=== PATIENT | female | born 1980 | race African-American/Black ===

== ENCOUNTER 2017-10-31 00:29 | Emergency (ER) | payer OTHER ==
[2017-10-31 01:30] VITALS: TEMP 98.9; BMI 42.5
--- NOTE | 2017-10-31 01:52 | PDOC ---
History of Present Illness - General History Source: Patient Exam Limitations: No Limitations - History of Present Illness Initial Comments: 10/31/17 03:37 The patient is a 37 year old female, with a significant past medical history of Lupus, DM, HTN, fibromyalgia, rheumatoid arthritis, migraines, and seizures, who presents to the emergency department with, 2 weeks of a headache and lightheadedness. As per patient, her headache is described as bandlike with associated lightheadedness. She took Advil, without relief. She claims that her current symptoms are different from her normal migraines. She reports multiple episodes of dizziness like the room is spinning when she gets up too fast over the past week. She reports intermittent chest pain she describes as a dull , constant, 7/10 that radiates to her back with associated palpitations. She reports diffuse body aches worsening in her hands and legs which is chronic in nature. The patient is currently on her menses. She claims to be compliant with all of her medications. She denies recent fevers or chills. She denies recent nausea, vomit, diarrhea or constipation. She denies recent dysuria, frequency, urgency or hematuria. She denies recent shortness of breath. Allergies: Iodinated Contrast- Oral and IV Dye. Social history: Nonsmoker. Denies EtOH use and recreational drug use. Primary Care Physician: Dr. Angela <Dian Murdock - Last Filed: 10/31/17 03:46> <Dee Husain - Last Filed: 10/31/17 03:53> - General Chief Complaint: Lightheaded Stated Complaint: PAIN/LIGHTHEADED Time Seen by Provider: 10/31/17 01:52 Past History <Dian Murdock - Last Filed: 10/31/17 03:46> - Suicide/Smoking/Psychosocial Hx Smoking History: Never smoked Have you smoked in the past 12 months: No Information on smoking cessation initiated: No Hx Alcohol Use: No Drug/Substance Use Hx: No <Dee Husain - Last Filed: 10/31/17 03:53> - Past Medical History Allergies/Adverse Reactions: Allergies Allergy/AdvReac Type Severity Reaction Status Date / Time Iodinated Contrast- Oral and Allergy Verified 10/31/17 01:31 IV Dye Review of Systems - Review of Systems Able to Perform ROS?: Yes Comments:: 10/31/17 03:37 GENERAL/CONSTITUTIONAL: No fever or chills. No weakness. HEAD, EYES, EARS, NOSE AND THROAT: No change in vision. No ear pain or discharge. No sore throat. +CARDIOVASCULAR: Chest pain. No shortness of breath. RESPIRATORY: No cough, wheezing, or hemoptysis. GASTROINTESTINAL: No nausea, vomiting, diarrhea or constipation. GENITOURINARY: No dysuria, frequency, or change in urination. +MUSCULOSKELETAL: Diffuse body aches. No neck or back pain. SKIN: No rash +NEUROLOGIC: Headache. Lightheadedness. No loss of consciousness. ENDOCRINE: No increased thirst. No abnormal weight change. HEMATOLOGIC/LYMPHATIC: No anemia, easy bleeding, or history of blood clots. ALLERGIC/IMMUNOLOGIC: No hives or skin allergy. All Other Systems: Reviewed and Negative <Dian Murdock - Last Filed: 10/31/17 03:46> *Physical Exam - Vital Signs Last Vital Signs Temp Pulse Resp BP Pulse Ox 98.9 F 92 H 16 155/93 98 10/31/17 00:30 10/31/17 00:30 10/31/17 00:30 10/31/17 00:30 10/31/17 00:30 - Physical Exam Comments: 10/31/17 03:46 GENERAL: Awake, alert, and fully oriented, in no acute distress HEAD: No signs of trauma EYES: PERRLA, EOMI, sclera anicteric, conjunctiva clear ENT: Auricles normal inspection, hearing grossly normal, nares patent, oropharynx clear without exudates. Moist mucosa NECK: Normal ROM, supple, no lymphadenopathy, JVD, or masses LUNGS: Breath sounds equal, clear to auscultation bilaterally. No wheezes, and no crackles HEART: Regular rate and rhythm, normal S1 and S2, no murmurs, rubs or gallops ABDOMEN: Soft, nontender, normoactive bowel sounds. No guarding, no rebound. No masses EXTREMITIES: Normal range of motion, no edema. No clubbing or cyanosis. No cords, erythema, or tenderness +NEUROLOGICAL: 4+/5 strength of the upper and lower right extremities. Normal strength of the upper and lower left extremities. Cranial nerves II through XII grossly intact. Normal speech, normal gait SKIN: Warm, Dry, normal turgor, no rashes or lesions noted. <Dian Murdock - Last Filed: 10/31/17 03:46> - Vital Signs Last Vital Signs Temp Pulse Resp BP Pulse Ox 98.9 F 92 H 16 155/93 98 10/31/17 00:30 10/31/17 00:30 10/31/17 00:30 10/31/17 00:30 10/31/17 00:30 <Dee Husain - Last Filed: 10/31/17 03:53> ED Treatment Course - LABORATORY CBC & Chemistry Diagram: 10/31/17 02:58 10/31/17 02:58 - ADDITIONAL ORDERS Additional order review: Laboratory Results 10/31/17 10/31/17 10/31/17 02:58 02:58 02:58 PT with INR INR PTT (Actin FS) Sodium 142 Potassium 3.9 Chloride 111 H Carbon Dioxide 24 Anion Gap 7 L BUN 9 Creatinine 0.6 Creat Clearance w eGFR > 60 Random Glucose 111 H Calcium 8.8 Total Bilirubin 0.1 L AST 20 ALT 32 Alkaline Phosphatase 67 Creatine Kinase 174 Troponin I < 0.02 Total Protein 7.1 Albumin 3.9 Serum , Qual Negative Carbamazepine 2.6 L* 10/31/17 10/31/17 02:58 02:58 PT with INR 11.50 INR 1.02 PTT (Actin FS) 27.0 Sodium Potassium Chloride Carbon Dioxide Anion Gap BUN Creatinine Creat Clearance w eGFR Random Glucose Calcium Total Bilirubin AST ALT Alkaline Phosphatase Creatine Kinase Troponin I Total Protein Albumin Serum , Qual Carbamazepine 10/31/17 02:58 RBC 4.10 MCV 82.3 MCHC 33.6 RDW 16.9 H MPV 8.0 Neutrophils % 44.7 Lymphocytes % 44.3 H Monocytes % 7.6 Eosinophils % 2.8 Basophils % 0.6 - Medications Given in the ED: ED Medications Discontinued Medications Generic Name Dose Route Start Last Admin Trade Name Freq PRN Reason Stop Dose Admin Meclizine HCl 25 mg 10/31/17 02:50 10/31/17 03:10 Antivert - PO 10/31/17 02:51 25 mg ONCE ONE Administration Oxycodone/Acetaminophen 2 combo 10/31/17 02:50 10/31/17 03:10 Percocet 5/325 - PO 10/31/17 02:51 2 combo ONCE ONE Administration <Dian Murdock - Last Filed: 10/31/17 03:46> - LABORATORY CBC & Chemistry Diagram: 10/31/17 02:58 10/31/17 02:58 <Dee Husain - Last Filed: 10/31/17 03:53> Medical Decision Making - Medical Decision Making 10/31/17 03:46 Pt's tegretol level is low. Other labs are normal; trop normal; CPK normal. WBC normal. Chemistries normal. C-reactive protein pending. 10/31/17 03:47 Pt's exam is normal, other than her chronic right sided weakness; pt has slight weakness on her right side copared to her left side. No rashes, or fevers. Chronic joint pains. Pt has no flank or abd pain. <Dee Husain - Last Filed: 10/31/17 03:53> *DC/Admit/Observation/Transfer - Attestations Scribe Attestion: 10/31/17 03:37 Documentation prepared by Dian Murdock, acting as certified medical asst for Dee Husain MD. <Dian Murdock - Last Filed: 10/31/17 03:46> <Dee Husain - Last Filed: 10/31/17 03:53> Diagnosis at time of Disposition: Headache, Uncontrolled hypertension, Seizure secondary to subtherapeutic anticonvulsant medication - Discharge Dispostion Disposition: HOME Condition at time of disposition: Stable - Referrals Referrals: Otilio Angela [Primary Care Provider] - - Patient Instructions Printed Discharge Instructions: Essential Hypertension, Lifestyle Habits May Lower Risk of Hypertension in Women, DI for Headache - Post Discharge Activity
[2017-10-31] MEDS ORDERED: MECLIZINE HCL 25 MG TABLET (FP) PO ONE (02:50)
[2017-10-31 03:05] LABS: BASO % 0.6 % (0-2.0); EOS % 2.8 % (0-4.5); HEMATOCRIT 33.7 % (32.4-45.2); HEMOGLOBIN 11.3 GM/dL (10.7-15.3); LYMPH % 44.3 % (8-40); MCH 27.7 pg (25.7-33.7); MCHC 33.6 g/dl (32.0-36.0); MEAN CELL VOLUME 82.3 fl (80-96); MONO % 7.6 % (3.8-10.2); NEUT % 44.7 % (42.8-82.8); PLATELET COUNT 273 K/MM3 (134-434); RDW 16.9 % (11.6-15.6)
[2017-10-31] MEDS ORDERED: MECLIZINE HCL 25 MG TABLET (FP) ONE (03:16)
[2017-10-31 03:23] LABS: INR 1.02 (0.83-1.09); PROTHROMBIN TIME (PATIENT) 11.5 SEC (9.7-13.0)
[2017-10-31 03:25] LABS: ALBUMIN 3.9 g/dl (3.4-5.0); ANION GAP 7 MMOL/L (8-16); BILIRUBIN,TOTAL 0.1 mg/dL (0.2-1.0); BLOOD UREA NITROGEN 9 mg/dL (7-18); CALCIUM 8.8 mg/dL (8.5-10.1); CHLORIDE 111 mmol/L (98-107); CO2 24 mmol/L (21-32); CREATININE 0.6 mg/dL (0.55-1.02); GLUCOSE,RANDOM 111 mg/dL (74-106); POTASSIUM 3.9 mmol/L (3.5-5.1); SGOT/AST 20 U/L (15-37); SGPT/ALT 32 U/L (12-78); SODIUM 142 mmol/L (136-145); TOT PROT 7.1 g/dl (6.4-8.2)
[2017-10-31 03:27] LABS: ALK PHOS 67 U/L (45-117)
[2017-10-31] MEDS ORDERED: carBAMazepine 200 MG TABLET PO ONE (03:50)
[2017-10-31] MEDS ORDERED: LOSARTAN POTASSIUM 25 MG TABLET PO ONE (03:52)
[2017-10-31] MEDS ORDERED: LOSARTAN POTASSIUM 25 MG TABLET ONE (03:57)
[2017-10-31] MEDS ORDERED: carBAMazepine 200 MG TABLET ONE (03:57)
[2017-10-31 04:09] VITALS: BP 139/97; PULSE 81
--- NOTE | 2017-10-31 18:43 | EKG ---
Test Reason : Blood Pressure : / mmHG Vent. Rate : 092 BPM Atrial Rate : 092 BPM P-R Int : 174 ms QRS Dur : 084 ms QT Int : 394 ms P-R-T Axes : 062 -09 047 degrees QTc Int : 487 ms SINUS RHYTHM WITH PREMATURE ATRIAL COMPLEXES WITH ABERRANT CONDUCTION SEPTAL INFARCT , AGE UNDETERMINED ABNORMAL ECG NO PREVIOUS ECGS AVAILABLE Confirmed by NYA GOYAL MD ([id number]) on 10/31/2017 6:43:05 PM Referred By: Confirmed By:NYA GOYAL MD
== END 2017-10-31 04:14 | disposition home or self-care (01) ==
LOC: JER 00:29
DX: R51 Headache (principal); I10 Essential (primary) hypertension; E11.9 Type 2 diabetes mellitus without complications; M06.80 Other specified rheumatoid arthritis, unspecified site; G43.909 Migraine, unspecified, not intractable, without status migrainosus; Z86.69 Personal history of other diseases of the nervous system and sense organs; Z87.39 Personal history of other diseases of the musculoskeletal system and connective tissue
CPT/HCPCS: 36415; 80053; 80156; 80201; 82550; 82553; 84484; 84703; 85025; 85610; 85730; 86140; 93005; 93010; 99282-25

== ENCOUNTER 2019-12-19 14:53 | Inpatient (IN) | payer OTHER ==
--- NOTE | 2019-12-19 15:05 | PDOC ---
Rapid Medical Evaluation Time Seen by Provider: 12/19/19 15:03 Medical Evaluation: Allergies Allergy/AdvReac Type Severity Reaction Status Date / Time Iodinated Contrast Media Allergy Verified 12/19/19 15:00 sumatriptan [From Imitrex] Allergy Difficulty Verified 12/19/19 15:00 Breathing 12/19/19 15:03 39 year old female hx of lupus and gastric bypass complaining of chest pain and SOB. Better with sitting up Vitals significant for HR 106 O2 100 PE: CTA RRR Plan: Labs EKG Chest XR Pt to precede to ED for further eval
--- NOTE | 2019-12-19 15:31 | PDOC ---
History of Present Illness - General Chief Complaint: Chest Pain Stated Complaint: CHEST PAIN Time Seen by Provider: 12/19/19 15:03 - History of Present Illness Initial Comments: 12/19/19 15:57 HPI: This is a 39 y/o female with a PMH of lupus, HTN, RA, seizures, DVT 10 years ago presenting to the ED because of 4 days of chest pain. The pain started abruptly and she denies any inciting incident. Its constant, sharp, left sided, and occasionally radiates to her back. The pain is worse with deep breaths. She is also having increased SOB, worse with exertion and is also complaining of lightheadedness. She denies any LOC. She has experienced similar pain before, but never this bad. She denies any associated N/V, abdominal pain, headache, blurry vision, or pain in her calfs. Admits to DVT over 10 years ago, and she was anticoagulated with Coumadin. No longer on anticoagulants. Patient reports IV contrast allergy. It makes her SOB. She denies recent travel, sick contacts, hx of malignancy, cough, or hemoptysis. ROS: GENERAL/CONSTITUTIONAL: No fever/chills, diaphoresis, or weakness. HEENT: No change in vision. No ear pain. No sore throat. CARDIOVASCULAR: Admits to sharp left sided chest pain, worse with deep breaths. Denies palpitations or peripheral edema. RESPIRATORY: Admits to shortness of breath, worse with exertion. No cough, wheezing, or hemoptysis. GASTROINTESTINAL: No abdominal pain, nausea, vomiting, diarrhea or constipation. GENITOURINARY: No dysuria, frequency MUSCULOSKELETAL: No joint or muscle swelling or pain. SKIN: No rash or hives NEUROLOGIC: Admits to lightheadedness. Denies vertigo, focal weakness, loss of consciousness, or change in strength/sensation. ENDOCRINE: No increased thirst. No unexplained weight loss. HEMATOLOGIC/LYMPHATIC: History of DVT 10 years ago. Not on anticoagulation. PCP: [facility] PMH: lupus, HTN, RA, seizures, DVT 10 years ago PSx: Bariatric surgery Social Hx: Denied etoh, tobacco, drug use Meds: See nurse note Allergies: IV contrast PE: GENERAL: Awake, alert, and fully oriented, in no acute distress. Patient is non- toxic, laying in bed able to speak full sentences. Shallow breathing. HEENT: Normocephalic, atraumatic. PERRLA, EOMI. No conjunctival pallor. Moist mucous membranes. NECK: Normal ROM and supple. No lymphadenopathy, JVD, or masses. CARDIOVASCULAR: Tachycardic, normal S1 and S2, no murmurs, rubs or gallops PULMONARY: Tachypneic taking shallow breaths. Breath sounds equal, clear to au scultation bilaterally. No wheezes, rales or rhonchi. ABDOMEN: Soft, nontender, normoactive bowel sounds. EXTREMITIES: Normal range of motion, no edema or erythema, no calf tenderness. No clubbing or cyanosis. NEUROLOGICAL: Cranial nerves II through XII grossly intact. Normal speech. SKIN: Warm, Dry, normal turgor, no rashes or lesions noted. Normal capillary refill. MDM: 12/19/19 16:46 This is a 39 y/o female with a PMH of lupus, HTN, RA, seizures, DVT 10 years ago presenting to the ED because of 4 days of chest pain. - Pain is sharp, constant, pleuritic - Hemodynamically stable. Saturating 100% on RA. Taking shallow breaths. - Hx of DVT, lupus. Concern for PE - Afebrile, no cough. Less concerned for pna - Patient reports allergy to contrast and says it makes her short of breath CBC, CMP, Cardiac Panel, Coags CXR, EKG V/Q scan because of contrast allergy EKG: No ST elevations T wave inversion in III not on previous EKG from Oct 2017 Sinus rhythm 88bpm Low voltage QRS Normal intervals - Spoke with Dr. Mark - As long as patient is hemodynamically stable can be admitted for V/Q scan in the morning. DVT study tonight, CXR, and can dose heparin if high suspicion for PE. Wells score of 3, putting her at 16.2% chance of PE in the ED population 12/19/19 16:51 - Pending CXR and coags will admit for V/Q scan tomorrow. - Tylenol for pain, fluids 12/19/19 17:54 - Patient currently getting DVT U/S Labs: CBC WNL CMP WNL Troponin negative UA negative Decision to anticoagulate her due to 16.2% change of PE and hypercoagulable state. No contraindications to anticoagulation. 12/19/19 17:54 - Admitted to [facility] 12/20/19 09:02 12/20/19 09:03 Past History - Medical History Allergies/Adverse Reactions: Allergies Allergy/AdvReac Type Severity Reaction Status Date / Time Iodinated Contrast Media Allergy Verified 12/19/19 15:00 sumatriptan [From Imitrex] Allergy Difficulty Verified 12/19/19 15:00 Breathing Home Medications: Ambulatory Orders Carbamazepine [Tegretol -] 200 mg PO BID 10/31/17 Losartan Potassium [Cozaar] 25 mg PO DAILY 10/31/17 COPD: No Diabetes: Yes HTN: Yes Seizures: Yes Other medical history: Lupus - Surgical History GI Surgery: Yes (bypass) - Reproductive History Is Patient Now?: No - Psycho-Social/Smoking History Smoking History: Never smoked Have you smoked in the past 12 months: No - Substance Abuse Hx (Audit-C & DAST Scrn) How often the patient has a drink containing alcohol: Never Score: In Men: 4 or > Positive; In Women: 3 or > Positive: 0 Screen Result (Pos requires Nsg. Audit-10AR): Negative In the last yr the pt used illegal drug/Rx for NonMed reason: No Score: Yes response is considered Positive: 0 Screen Result (Positive result requires Nsg. DAST-10): Negative *Physical Exam - Vital Signs Last Vital Signs Temp Pulse Resp BP Pulse Ox 98.2 F 106 H 22 H 116/72 100 12/19/19 15:01 12/19/19 15:01 12/19/19 15:01 12/19/19 15:01 12/19/19 15:01 Heart Score/ECG Review - History History: Slightly suspicious - Electrocardiogram EKG: Non specific repolarization disturbance - Age Age: </= 45 - Risk Factors Risk Factors Heart Score: Yes Hx Hypertension, Yes Hx Obesity Based on the list above the patient has:: 1-2 risk factors - Troponin Troponin: </= normal limit - Score Heart Score - Total: 2 ED Treatment Course - LABORATORY CBC & Chemistry Diagram: 12/20/19 06:09 12/20/19 06:09 Discharge - Discharge Information Problems reviewed: Yes Clinical Impression/Diagnosis: Shortness of breath Chest pain Qualifiers: Chest pain type: chest pain on breathing Qualified Code(s): R07.1 - Chest pain on breathing - Admission Yes - Follow up/Referral - Patient Discharge Instructions - Post Discharge Activity
--- OUTSIDE RECORDS SUMMARY | 2019-12-19 15:33 | XMS ---
:1980 Author Organization [facility] Support Name Relationship Address Phone UE Unavailable Unavailable Unavailable RONNY GRIGSBY [address] [place] [address] UNEMPLOYD Unavailable Unavailable Unavailable Re-disclosure Warning The records that you are about to access may contain information from federally- assisted alcohol or drug abuse programs. If such information is present, then the following federally mandated warning applies: This information has been disclosed to you from records protected by federal confidentiality rules (42 CFR part 2). The federal rules prohibit you from making any further disclosure of this information unless further disclosure is expressly permitted by the written consent of the person to whom it pertains or as otherwise permitted by 42 CFR part 2. A general authorization for the release of medical or other information is NOT sufficient for this purpose. The Federal rules restrict any use of the information to criminally investigate or prosecute any alcohol or drug abuse patient.The records that you are about to access may contain highly sensitive health information, the redisclosure of which is protected by Article 27-F of the [facility] Public Health law. If you continue you may haveaccess to information: Regarding HIV / AIDS; Provided by facilities licensed or operated by the [facility] Office of Mental Health; or Provided by the [facility] Office for People With Developmental Disabilities. If such information is present, then the following [facility] mandated warning applies: This information has been disclosed to you from confidential records which are protected by state law. State law prohibits you from making any further disclosure of this information without the specific written consent of the person to whom it pertains, or as otherwise permitted by law. Any unauthorized further disclosure in violation of state law may result in a fine or assisted sentence or both. A general authorization for the release of medical or other information is NOT sufficient authorization for further disclosure. Insurance Providers Payer name Policy type Policy ID Covered Covered democrat's Policy P chelsie / Coverage democrat ID relationship to [place] Inf ormation type everett [facility] [id number] SP [id number] NON CAP AETNA PPO [id number] SP [id number] PROGRESSIVE [id number] PT [id number] INS
[2019-12-19 15:55] LABS: BASO % 0.5 % (0-2.0); EOS % 2.6 % (0-4.5); HEMATOCRIT 38.5 % (32.4-45.2); HEMOGLOBIN 13.4 GM/dL (10.7-15.3); LYMPH % 36.9 % (8-40); MCH 32.2 pg (25.7-33.7); MCHC 34.7 g/dl (32.0-36.0); MEAN CELL VOLUME 92.6 fl (80-96); MONO % 5.9 % (3.8-10.2); NEUT % 54.1 % (42.8-82.8); PLATELET COUNT 284 K/MM3 (134-434); RBC 4.16 M/mm3 (3.60-5.2); RDW 13.3 % (11.6-15.6); WHITE BLOOD COUNT 6.6 K/mm3 (4.0-10.0)
[2019-12-19] MEDS ORDERED: ACETAMINOPHEN 1000 MG/100 ML VIAL (NON FORMULARY) IVPB ONE ×2 (15:56→21:13)
[2019-12-19] MEDS ORDERED: SODIUM CHLORIDE 0.9% 500 ML INFUS.BAG IV ONE (15:56)
[2019-12-19] MEDS ORDERED: ACETAMINOPHEN INJECTION 100 ML IVPB ONE ×2 (16:15→20:57)
[2019-12-19 16:27] LABS: ALBUMIN 4.1 g/dl (3.4-5.0); ALK PHOS 82 U/L (45-117); ANION GAP 4 MMOL/L (8-16); BILIRUBIN,TOTAL 0.2 mg/dL (0.2-1); BLOOD UREA NITROGEN 9.4 mg/dL (7-18); CALCIUM 8.8 mg/dL (8.5-10.1); CHLORIDE 106 mmol/L (98-107); CO2 28 mmol/L (21-32); CREATININE 0.6 mg/dL (0.55-1.3); GLUCOSE,RANDOM 103 mg/dL (74-106); POTASSIUM 3.9 mmol/L (3.5-5.1); SGOT/AST 22 U/L (15-37); SGPT/ALT 50 U/L (13-61); SODIUM 138 mmol/L (136-145); TOT PROT 7.7 g/dl (6.4-8.2)
[2019-12-19 16:39] LABS: HCG,QUALITATIVE URINE Negative
[2019-12-19 16:40] LABS: EPI CELLS 30 /uL (0-25.1); HYALINE CASTS 1 /uL (0-3.1); PH,URINE >= 9.0 (5.0-8.0); URINE APPEARANCE CLEAR; URINE BACTERIA 103 /uL (0-1359); URINE BILIRUBIN NEGATIVE (NEGATIVE); URINE COLOR DK YELLOW; URINE GLUCOSE (UA) NEGATIVE (NEGATIVE); URINE KETONE NEGATIVE (NEGATIVE); URINE LEUK ESTERASE NEGATIVE (NEGATIVE); URINE NITRITE NEGATIVE (NEGATIVE); URINE PROTEIN 1+ (NEGATIVE); URINE RBC 42 /uL (0-23.9); URINE UROBILINOGEN 0.2 mg/dL (0.2-1.0)
--- NOTE | 2019-12-19 17:24 | PDOC ---
Attending Attestation - Resident Resident Name: RodrigoIsis - ED Attending Attestation I have performed the following: I have examined & evaluated the patient, The case was reviewed & discussed with the resident, I agree w/resident's findings & plan, Exceptions are as noted - HPI HPI: 12/19/19 17:15 This 39 yo female with PMH of Lupus,DVT,obesity, has had pleuretic chest pain that increases with deep breaths - Physicial Exam PE: 12/19/19 17:25 obese 39 yo female p/e chest pain head ncat neck supple lungs cta b/l cvs [id number] abdomen no rebound extremities no deformities skin warm and dry neuro axox3,ambulatory psych appropriate - Medical Decision Making 12/19/19 17:27 plan labs/anticoagulation/duplex dopplers LE and admit for VQ. IR was consulted to and is aware of this pt. PT is admitted -complication to obtain cta chest is the patient's allergy to IV constrast 12/19/19 20:08 Discharge - Discharge Information Problems reviewed: Yes Clinical Impression/Diagnosis: Shortness of breath Chest pain Qualifiers: Chest pain type: chest pain on breathing Qualified Code(s): R07.1 - Chest pain on breathing - Follow up/Referral - Patient Discharge Instructions - Post Discharge Activity
[2019-12-19 17:40] LABS: URINE WBC 69.6 /uL (0-25.8)
[2019-12-19] MEDS ORDERED: HEPARIN NA (PORCINE) 5,000 UNITS/ML 1ML VIAL IVPUSH PRN ×2 (18:46)
[2019-12-19 18:47] LABS: INR 1.1 (0.83-1.09); PROTHROMBIN TIME (PATIENT) 12.9 SEC (9.7-13.0)
[2019-12-19] MEDS ORDERED: HEPARIN - 25,000 UNIT in SODIUM CHLORIDE 495 ML IV SCH (19:00)
--- OUTSIDE RECORDS SUMMARY | 2019-12-19 19:11 | XMS ---
:1980 Author Organization [facility] Support Name Relationship Address Phone UE, UNEMPLOYED Unavailable Unavailable Unavailable UE Unavailable Unavailable Unavailable RONNY GRIGSBY MOTHER [address] [place] [address] UNEMPLOYD Unavailable Unavailable Unavailable Re-disclosure Warning The [...] is protected by Article 27-F of the [facility] Public Health law. If you continue you may haveaccess to information: Regarding HIV / AIDS; Provided by facilities licensed or operated by the [facility] Office of Mental Health; or Provided by the [facility] Office for People With Developmental Disabilities. If such information is present, then the following [facility] mandated warning applies: This information has been [...] law may result in a fine or correction sentence or both. A general authorization for the release of medical or other information is NOT sufficient authorization for further disclosure. Insurance Providers Payer name Policy type Policy ID Covered Covered democrat's Policy P chelsie / Coverage democrat ID relationship to [place] Inf ormation type everett [facility] [id number] SP [id number] NON CAP AETNA PPO [id number] SP [id number] 3 [facility] [id number] SP [id number] NON CAP PROGRESSIVE [id number] PT [id number] INS
--- NOTE | 2019-12-19 20:17 | EKG ---
Test Reason : Blood Pressure : / mmHG Vent. Rate : 088 BPM Atrial Rate : 088 BPM P-R Int : 188 ms QRS Dur : 098 ms QT Int : 376 ms P-R-T Axes : 004 069 000 degrees QTc Int : 454 ms NORMAL SINUS RHYTHM LOW VOLTAGE QRS SEPTAL INFARCT (CITED ON OR BEFORE 31-OCT-2017) ABNORMAL ECG WHEN COMPARED WITH ECG OF 31-OCT-2017 03:06, NO SIGNIFICANT CHANGE WAS FOUND Confirmed by JOE VINCENT, ANIKET ([id number]) on 12/19/2019 8:17:04 PM Referred By: Confirmed By:ANIKET DIAZ MD
[2019-12-19] MEDS ORDERED: ENOXAPARIN NA (PORCINE) 100 MG/1 ML DISP.SYRIN SQ SCH (20:32)
--- NOTE | 2019-12-19 20:36 | HP ---
CHIEF COMPLAINT: SOB HISTORY OF PRESENT ILLNESS: 39 F h/o SLE, DVT 10 years ago (was on Coumadin), gastric bypass 2019, seizure disorder, asthma, HTN, obesity, fibromyalgia, presents with sudden onset SOB and L sided CP starting 3-4 days ago. Patient endorses suddenly feeling short of breath 3 days ago, endorses increased WOB and CP when she coughs or takes a deep breath. In ED pt. found to be tachycardic and tachypneic saturating 99% on RA. Patient endorses IV contrast allergy w/ "shortness of breath", V/Q scheduled but not done during the day. Denies fever/chills/LOC/travel/sick contacts. No blood in stool/mucus/urine. ER course was notable for: (1) EKG w/ TWI Lead III and T wave flattening aVL (2) Trops neg. x1 (3) CT chest w/o cont. showing dilated pulm. artery, Therapeutic Lovenox empirically given for PE Recent Travel: Denies PAST MEDICAL HISTORY: as above PAST SURGICAL HISTORY: gastric bypass surgery 2018 Social History: denies x3 Allergies Iodinated Contrast Media Allergy (Verified 12/19/19 15:00) sumatriptan [From Imitrex] Allergy (Verified 12/19/19 15:00) Difficulty Breathing HOME MEDICATIONS: Home Medications Medication Instructions Recorded Carbamazepine [Tegretol -] 200 mg PO BID 10/31/17 Losartan Potassium [Cozaar] 25 mg PO DAILY 10/31/17 PHYSICAL EXAMINATION Vital Signs - 24 hr 12/19/19 12/19/19 12/19/19 15:01 15:34 17:00 Temperature 98.2 F Pulse Rate 106 H 88 Pulse Rate [ 87 Apical] Respiratory 22 H 17 Rate Blood Pressure 116/72 Blood Pressure 107/76 [Right Arm] O2 Sat by Pulse 100 99 100 Oximetry (%) 12/19/19 17:21 Temperature Pulse Rate Pulse Rate [ Apical] Respiratory 17 Rate Blood Pressure Blood Pressure [Right Arm] O2 Sat by Pulse 100 Oximetry (%) GA slightly tachypneic, anxious, answering questions HEENT NC/AT, no JVD, no stridor, wide neck circumference CHest no wheezing or crackles, increased WOB, slightly tachypneic CVS S1, S2+, sinus tachycardia, no m/r/g Abd obese, Soft, NT, BS+ Ext no LE edema, no calf tenderness Laboratory Results - last 24 hr 12/19/19 12/19/19 12/19/19 15:20 15:20 15:20 WBC 6.6 RBC 4.16 Hgb 13.4 Hct 38.5 MCV 92.6 MCH 32.2 D MCHC 34.7 RDW 13.3 D Plt Count 284 MPV 8.0 Absolute Neuts (auto) 3.6 Neutrophils % 54.1 D Lymphocytes % 36.9 Monocytes % 5.9 Eosinophils % 2.6 Basophils % 0.5 Nucleated RBC % 0 PT with INR INR PTT (Actin FS) D-Dimer Sodium 138 Potassium 3.9 Chloride 106 Carbon Dioxide 28 Anion Gap 4 L BUN 9.4 Creatinine 0.6 Est GFR (CKD-EPI)AfAm 134.01 Est GFR (CKD-EPI)NonAf 115.63 Random Glucose 103 Calcium 8.8 Total Bilirubin 0.2 AST 22 ALT 50 Alkaline Phosphatase 82 Creatine Kinase 88 Troponin I < 0.02 Total Protein 7.7 Albumin 4.1 Urine Color Dk yellow Urine Appearance Clear Urine pH >= 9.0 H Ur Specific [place] 1.024 Urine Protein 1+ H Urine Glucose (UA) Negative Urine Ketones Negative Urine Blood Negative Urine Nitrite Negative Urine Bilirubin Negative Urine Urobilinogen 0.2 Ur Leukocyte Esterase Negative Urine WBC (Auto) 69.6 Urine RBC (Auto) 42 Urine Casts (Auto) 1 U Epithel Cells (Auto) 30 Urine Bacteria (Auto) 103 Urine HCG, Qual Negative 12/19/19 12/19/19 12/19/19 18:30 18:30 19:50 WBC RBC Hgb Hct MCV MCH MCHC RDW Plt Count MPV Absolute Neuts (auto) Neutrophils % Lymphocytes % Monocytes % Eosinophils % Basophils % Nucleated RBC % PT with INR 12.90 INR 1.10 H PTT (Actin FS) 30.6 D-Dimer 474 Sodium Potassium Chloride Carbon Dioxide Anion Gap BUN Creatinine Est GFR (CKD-EPI)AfAm Est GFR (CKD-EPI)NonAf Random Glucose Calcium Total Bilirubin AST ALT Alkaline Phosphatase Creatine Kinase Troponin I Total Protein Albumin Urine Color Urine Appearance Urine pH Ur Specific [place] Urine Protein Urine Glucose (UA) Urine Ketones Urine Blood Urine Nitrite Urine Bilirubin Urine Urobilinogen Ur Leukocyte Esterase Urine WBC (Auto) Urine RBC (Auto) Urine Casts (Auto) U Epithel Cells (Auto) Urine Bacteria (Auto) Urine HCG, Qual Home Medications Medication Instructions Recorded Carbamazepine [Tegretol -] 200 mg PO BID 10/31/17 Losartan Potassium [Cozaar] 25 mg PO DAILY 10/31/17 Current Medications Generic Name Dose Route Start Last Admin Trade Name Placidoq PRN Reason Stop Dose Admin Carbamazepine 200 mg 12/19/19 22:00 12/19/19 22:13 Tegretol - PO 200 mg BID NEYDA Administration Enoxaparin Sodium 100 mg 12/19/19 20:45 12/19/19 21:03 Lovenox - SQ 100 mg BID NEYDA Administration ASSESSMENT/PLAN: 39 F Highly suspected PE h/o DVT prev. on Coumadin HTN s/p gastric bypass SLE Seizure disorder Fibromyalgia Depression Plan: CT chest w/o cont. neg. for aortic aneurysm/hematoma, dilated PA (?Pulm HTN, PE) WELLS SCORE 3 which is moderate risk for PE Given h/o DVT in the past, Wells score, and h/o SLE (hypercoaguable state) and no absolute contraindication to AC, will give Therapeutic Lovenox pending V/Q scan. Pulmonary consult Restart seizure meds Echo Utox, Thyroid panel (thyromegaly on CT) Tele monitoring DVT ppx: Lovenox Family Medical History Family History: As Documented Visit type - Emergency Visit Emergency Visit: Yes ED Registration Date: 12/19/19 Care time: The patient presented to the Emergency Department on the above date and was hospitalized for further evaluation of their emergent condition. - New Patient This patient is new to me today: Yes Date on this admission: 12/19/19 - Critical Care Critical Care patient: No
[2019-12-19] MEDS ORDERED: ENOXAPARIN NA (PORCINE) 100 MG/1 ML DISP.SYRIN SQ ONE (20:57)
[2019-12-19] MEDS: ENOXAPARIN NA (PORCINE) 100 MG/1 ML DISP.SYRIN SQ SCH (21:03)
[2019-12-19] MEDS ORDERED: carBAMazepine 200 MG TABLET ONE (22:03)
[2019-12-19] MEDS: carBAMazepine 200 MG TABLET PO SCH (22:13)
[2019-12-19 22:45] LABS: COCAINE, UR NEGATIVE ng/ml (CUTOFF=300); METHADONE, UR NEGATIVE ng/ml (CUTOFF=300); OPIATES, URI NEGATIVE ng/ml (CUTOFF=300); PHENCYCLIDINE,URINE NEGATIVE ng/ml (CUTOFF=25); URINE AMPHETAMINES NEGATIVE ng/ml (CUTOFF=500); URINE BARBITURATES NEGATIVE ng/ml (CUTOFF=200); URINE BENZODIAZEPINES NEGATIVE ng/ml (CUTOFF=200)
[2019-12-20 00:19] VITALS: BMI 39.3
[2019-12-20 07:18] LABS: INR 1.1 (0.83-1.09); PROTHROMBIN TIME (PATIENT) 12.9 SEC (9.7-13.0)
--- NOTE | 2019-12-20 07:18 | PN ---
Progress Note (short form) - Note Progress Note: PULMONARY CONSULTATION DICTATED 12/20/19 IMP CP/DYSPNEA DOUBT PE,?LUPUS PLEURITIS H/O SLE H/O DVT UNPROVOKED NEVER WORKED UP FOR HYPER-COAGULABLE STATE ASTHMA SEIZURE DISORDER HTN H/O GASTRIC BYPASS OBESITY PLAN O2 NEEDED ANALGESICS INHALED BRONCHODILATORS NEEDED ESR,CRP ECHO DUPLEX LOWER EXT V/Q DR ROSE Problem List - Problems (1) HTN (hypertension) Code(s): I10 - ESSENTIAL (PRIMARY) HYPERTENSION (2) Chest pain Code(s): R07.9 - CHEST PAIN, UNSPECIFIED Qualifiers: Chest pain type: chest pain on breathing Qualified Code(s): R07.1 - Chest pain on breathing; R07.81 - Pleurodynia (3) Shortness of breath Code(s): R06.02 - SHORTNESS OF BREATH (4) SLE (systemic lupus erythematosus) Code(s): M32.9 - SYSTEMIC LUPUS ERYTHEMATOSUS, UNSPECIFIED (5) H/O deep venous thrombosis Code(s): Z86.718 - PERSONAL HISTORY OF OTHER VENOUS THROMBOSIS AND EMBOLISM
[2019-12-20 07:20] LABS: ACTIVATED PTT 35.7 SECONDS (25.2-36.5)
[2019-12-20 07:22] LABS: BASO % 0.3 % (0-2.0); EOS % 3.4 % (0-4.5); HEMATOCRIT 33.9 % (32.4-45.2); LYMPH % 46.8 % (8-40); MCH 32.8 pg (25.7-33.7); MCHC 35.4 g/dl (32.0-36.0); MEAN CELL VOLUME 92.7 fl (80-96); MEAN PLT VOLUME 8.2 fl (7.5-11.1); MONO % 6.8 % (3.8-10.2); NEUT % 42.7 % (42.8-82.8); PLATELET COUNT 240 K/MM3 (134-434); RBC 3.66 M/mm3 (3.60-5.2); RDW 13.6 % (11.6-15.6); WHITE BLOOD COUNT 5.5 K/mm3 (4.0-10.0)
[2019-12-20 07:42] LABS: ALBUMIN 3.3 g/dl (3.4-5.0); BILIRUBIN,TOTAL 0.2 mg/dL (0.2-1); BLOOD UREA NITROGEN 8.2 mg/dL (7-18); CALCIUM 8.1 mg/dL (8.5-10.1); CREATININE 0.5 mg/dL (0.55-1.3); POTASSIUM 3.6 mmol/L (3.5-5.1); TOT PROT 6.2 g/dl (6.4-8.2)
--- NOTE | 2019-12-20 08:49 | PN ---
Teaching Attending Note Name of Resident: Joann Stanford ATTENDING PHYSICIAN STATEMENT I saw and evaluated the patient. I reviewed the resident's note and discussed the case with the resident. I agree with the resident's findings and plan as documented. SUBJECTIVE: patient still with shortness of breath Sitting in bed, comfortable OBJECTIVE: Vital Signs Period Temp Pulse Resp BP Sys/Nichols Pulse Ox Last 24 Hr 97.8 F-98.4 F 82-106 17-20 94-119/57-76 93-100 Physical exam as per resident note ASSESSMENT AND PLAN: 39 F h/o SLE, DVT 10 years ago (was on Coumadin), gastric bypass 2018, seizure disorder, asthma, HTN, obesity, fibromyalgia, presents with sudden onset SOB and L sided CP: Shortness of breath O2 support as needed Check 2D Echo V/Q scan pending CT chest with dilated Pulmonary artery Patient started overnight on theraputic Lovenox, Continue for now pending V/Q Scan Troponin Negative Monitor on tele Hyperthyroidism Check T3 and T4 Patient denies any supplements Patient noted to have enlarged thyroid gland on CT scan patient will need Thyroid US as outpatient and possible RAIU scan if able Ppx Lovenox
[2019-12-20] MEDS ORDERED: PT OWN MED DRAWER 7, Y5N ONE ×2 (08:56→20:57)
[2019-12-20] MEDS: carBAMazepine 200 MG TABLET PO SCH ×2 (10:32→21:37)
[2019-12-20] MEDS: ENOXAPARIN NA (PORCINE) 100 MG/1 ML DISP.SYRIN SQ SCH ×2 (10:33→21:37)
--- NOTE | 2019-12-20 12:48 | CONS ---
PULMONARY CONSULTATION DATE OF CONSULTATION: 12/20/2019 REFERRING PHYSICIAN: Isacc Schultz MD Patient is a 39-year-old female with past medical history of SLE, maintained on Plaquenil; history of DVT, unprovoked 10 years ago, was treated with Coumadin as well as Lovenox for approximately 1 year; gastric bypass in 2019; seizure disorder; asthma; hypertension; fibromyalgia; admitted to [facility] on December 18, with complaint of sudden onset of shortness of breath and left-sided pleuritic chest pain which started 3-4 days prior to admission. Patient states she always has left-sided chest discomfort. For the past 3 days, she had acute onset of worsening of chest pain associated with inspiration as well as shortness of breath. Denied any fevers, chills. Denies any cough. No hemoptysis. She presented to the emergency room. In the ER, she was noted to be tachypneic and tachycardic with O2 saturations of 99% on room air. CTA of the chest was not able to be performed secondary to IV CONTRAST allergy. Patient denies any recent travel. There is no history of occupational exposure to chemicals or fumes. She is a nonsmoker. She denies any hemoptysis. Denies any fevers, weight loss, or night sweats. Of note, she underwent a CAT scan of the chest without contrast which showed dilated pulmonary artery. She was started on empiric Lovenox for possible PE. PAST MEDICAL HISTORY: Again includes DVT, unprovoked, never worked up for hypercoagulable state; SLE; gastric bypass; seizures; asthma; hypertension; obesity; fibromyalgia. REVIEW OF SYSTEMS: Positive mild shortness of breath. Positive pleuritic chest pain. No fever. No chills. No hemoptysis. No cough. No abdominal pain. No lower extremity edema. CURRENT MEDICATIONS: Include Tegretol and Lovenox. PHYSICAL EXAMINATION: General: Patient is an obese female, awake, alert, uncomfortable, in no acute distress. Vital Signs: She is afebrile. Blood pressure 105/67. Respiratory rate is 20. O2 saturation is 98% on room air. HEENT: Normocephalic, atraumatic. Neck: Supple. Heart: Regular. S1, S2. Chest: Clear. Abdomen: Soft. Bowel sounds are positive. Extremities: No cyanosis or edema. LABORATORY DATA: WBC is 5.5, hemoglobin 12, hematocrit 33.9 with a platelet count of 240,000. D-dimer is 474. BUN is 8, creatinine 0.5. Chest CT as noted earlier. COVID serology pending. IMPRESSION: 1. Chest pain, dyspnea. Doubt pulmonary embolism with normal D-dimer, although cannot completely exclude. 2. Rule out possible lupus pleuritis. 3. History of systemic lupus erythematosus. 4. History of deep venous thrombosis, unprovoked; never worked up for hypercoagulable state. 5. Asthma, stable. 6. Seizure disorder. 7. Hypertension. 8. History of gastric bypass. 9. Obesity. PLAN: Supplemental O2, analgesics and add bronchodilators as needed. Obtain ESR, CRP, echocardiogram, duplex of lower extremities and V/Q. ISACC ROSE M.D. KATHERIN/[id number]
--- NOTE | 2019-12-20 14:30 | ECHO ---
Version: 1 Name: LINDSEY LUNA Exam: Adult Echocardiogram Study Date: 12/20/2019, 1:32 PM Age: 39 Years MMode/2D Measurements & Calculations IVSd: 1.02 cm LVIDs: 2.07 cm LVIDd: 3.5 cm LVPWd: 1.07 cm LAV (MOD-bp): 28.1 ml LVOT diam: 2.04 cm Ao root diam: 2.6 cm LA dimension: 3.1 cm Doppler Measurements & Calculations MV E max vishal: 90.7 cm/sec Med E/e': 9.3 MV A max vishal: 94.0 cm/sec Med Peak E' Vishal: 9.8 cm/sec MV E/A: 0.96 Lat E/e': 7.4 Lat Peak E' Vishal: 12.3 cm/sec MR max P.2 mmHg Ao max P.3 mmHg Ao V2 max: 160.4 cm/sec TR max vishal: 206.3 cm/sec TR max P.0 mmHg Left Ventricle The left ventricular size, thickness and function are normal. EF 72%. Grade I diastolic dysfunction, (abnormal relaxation pattern). Right Ventricle The right ventricle is normal in size and function. Atria Normal left and right atrial size and function. Mitral Valve The mitral valve is grossly normal. Tricuspid Valve The tricuspid valve is not well visualized, but is grossly normal. Mild TR, PASP 26 mmHg. Aortic Valve The aortic valve is normal in structure and function. Pulmonic Valve The pulmonic valve is normal in structure and function. Great Vessels The aortic root is normal size. Pericardium/Pleura There is no pericardial effusion. Summary Statements The left ventricular size, thickness and function are normal EF 72% Grade I diastolic dysfunction, (abnormal relaxation pattern). The right ventricle is normal in size and function. Normal left and right atrial size and function. The mitral valve is grossly normal. The aortic valve is normal in structure and function. The pulmonic valve is normal in structure and function. MD Sheldon Prado 12/20/2019, 2:30 PM Ordering Physician: Raffaele Uriostegui Performed By: Yamel Montenegro
--- NOTE | 2019-12-20 15:12 | PN ---
Physical Exam: SUBJECTIVE: Patient seen and examined. Complains of difficulty breathing and taking a deep breath, due to chest pain. OBJECTIVE: Vital Signs Period Temp Pulse Resp BP Sys/Nichols Pulse Ox Last 24 Hr 97.8 F-98.4 F 82-106 17-20 94-119/57-76 93-100 GENERAL: Awake, alert. Not in acute distress. HEENT: NCAT, EOMI, PERRL. Moist mucus membranes. CARDIAC: RRR, S1, S2 present. No murmurs. PULMONARY: CTA b/l. No wheezes or accessory muscle use. ABDOMEN: Obese, nontender to palpation, nondistended. Normoactive bowel sounds EXTREMITIES: Warm, well-perfused. No edema. 2+ pulses b/l. SKIN: Tattoos on skin. Warm, dry. Laboratory Last Values WBC 5.5 K/mm3 (4.0-10.0) 12/20/19 06:09 RBC 3.66 M/mm3 (3.60-5.2) 12/20/19 06:09 Hgb 12.0 GM/dL (10.7-15.3) 12/20/19 06:09 Hct 33.9 % (32.4-45.2) 12/20/19 06:09 MCV 92.7 fl (80-96) 12/20/19 06:09 MCH 32.8 pg (25.7-33.7) 12/20/19 06:09 MCHC 35.4 g/dl (32.0-36.0) 12/20/19 06:09 RDW 13.6 % (11.6-15.6) 12/20/19 06:09 Plt Count 240 K/MM3 (134-434) 12/20/19 06:09 MPV 8.2 fl (7.5-11.1) 12/20/19 06:09 Absolute Neuts (auto) 2.4 K/mm3 (1.5-8.0) 12/20/19 06:09 Neutrophils % 42.7 % (42.8-82.8) L D 12/20/19 06:09 Lymphocytes % 46.8 % (8-40) H D 12/20/19 06:09 Monocytes % 6.8 % (3.8-10.2) 12/20/19 06:09 Eosinophils % 3.4 % (0-4.5) 12/20/19 06:09 Basophils % 0.3 % (0-2.0) 12/20/19 06:09 Nucleated RBC % 0 % (0-0) 12/20/19 06:09 ESR 2 mm/hr (0-20) 12/20/19 13:00 PT with INR 12.90 SEC (9.7-13.0) 12/20/19 06:09 INR 1.10 (0.83-1.09) H 12/20/19 06:09 PTT (Actin FS) 35.7 SECONDS (25.2-36.5) 12/20/19 06:09 Fibrinogen 284.0 mg/dL (238-498) 12/19/19 20:50 D-Dimer 474 ng/ml (0-500) 12/19/19 19:50 Sodium 140 mmol/L (136-145) 12/20/19 06:09 Potassium 3.6 mmol/L (3.5-5.1) 12/20/19 06:09 Chloride 110 mmol/L (98-107) H 12/20/19 06:09 Carbon Dioxide 24 mmol/L (21-32) 12/20/19 06:09 Anion Gap 5 MMOL/L (8-16) L 12/20/19 06:09 BUN 8.2 mg/dL (7-18) 12/20/19 06:09 Creatinine 0.5 mg/dL (0.55-1.3) L 12/20/19 06:09 Est GFR (CKD-EPI)AfAm 142.30 12/20/19 06:09 Est GFR (CKD-EPI)NonAf 122.78 12/20/19 06:09 Random Glucose 89 mg/dL (74-106) 12/20/19 06:09 Hemoglobin A1c % 5.0 % (4.2-6.3) 12/20/19 06:09 Calcium 8.1 mg/dL (8.5-10.1) L 12/20/19 06:09 Total Bilirubin 0.2 mg/dL (0.2-1) 12/20/19 06:09 AST 14 U/L (15-37) L 12/20/19 06:09 ALT 38 U/L (13-61) 12/20/19 06:09 Alkaline Phosphatase 67 U/L (45-117) 12/20/19 06:09 Creatine Kinase 88 U/L (26-192) 12/19/19 15:20 Troponin I < 0.02 ng/ml (0.00-0.05) 12/19/19 20:50 Total Protein 6.2 g/dl (6.4-8.2) L 12/20/19 06:09 Albumin 3.3 g/dl (3.4-5.0) L 12/20/19 06:09 Triglycerides 227 mg/dL (0-150) H 12/20/19 06:09 Cholesterol 169 mg/dL (50-200) 12/20/19 06:09 Total LDL Cholesterol 81 mg/dL (5-100) 12/20/19 06:09 HDL Cholesterol 68 mg/dL (40-60) H 12/20/19 06:09 TSH 0.26 uIU/ml (0.358-3.74) L 12/19/19 20:50 Free T4 0.71 ng/dl (0.76-1.46) L 12/19/19 20:50 Resin T3 Uptake 30.2 % (30-39) 12/20/19 06:09 Urine Color Dk yellow 12/19/19 15:20 Urine Appearance Clear 12/19/19 15:20 Urine pH >= 9.0 (5.0-8.0) H 12/19/19 15:20 Ur Specific [place] 1.024 (1.010-1.035) 12/19/19 15:20 Urine Protein 1+ (NEGATIVE) H 12/19/19 15:20 Urine Glucose (UA) Negative (NEGATIVE) 12/19/19 15:20 Urine Ketones Negative (NEGATIVE) 12/19/19 15:20 Urine Blood Negative (NEGATIVE) 12/19/19 15:20 Urine Nitrite Negative (NEGATIVE) 12/19/19 15:20 Urine Bilirubin Negative (NEGATIVE) 12/19/19 15:20 Urine Urobilinogen 0.2 mg/dL (0.2-1.0) 12/19/19 15:20 Ur Leukocyte Esterase Negative (NEGATIVE) 12/19/19 15:20 Urine WBC (Auto) 69.6 /uL (0-25.8) 12/19/19 15:20 Urine RBC (Auto) 42 /uL (0-23.9) 12/19/19 15:20 Urine Casts (Auto) 1 /uL (0-3.1) 12/19/19 15:20 U Epithel Cells (Auto) 30 /uL (0-25.1) 12/19/19 15:20 Urine Bacteria (Auto) 103 /uL (0-1359) 12/19/19 15:20 Urine HCG, Qual Negative 12/19/19 15:20 Opiates Screen Negative ng/ml (JGCJVR=011) 12/19/19 22:10 Methadone Screen Negative ng/ml (VXHOBO=625) 12/19/19 22:10 Barbiturate Screen Negative ng/ml (VSJNLW=710) 12/19/19 22:10 Phencyclidine Screen Negative ng/ml (CUTOFF=25) 12/19/19 22:10 Ur Amphetamines Screen Negative ng/ml (GQXEFZ=114) 12/19/19 22:10 MDMA (Ecstasy) Screen Negative ng/ml (IWHXTK=248) 12/19/19 22:10 Benzodiazepines Screen Negative ng/ml (EZNPCU=244) 12/19/19 22:10 Cocaine Screen Negative ng/ml (RLGEOP=647) 12/19/19 22:10 U Marijuana (THC) Screen Negative ng/ml (CUTOFF=50) 12/19/19 22:10 COVID-19 (DORA) Not detected (Not Detected) 12/19/19 17:00 Active Medications Carbamazepine (Tegretol -) 200 mg PO BID [facility] Last Admin: 12/20/19 10:32 Dose: 200 mg Documented by: Enoxaparin Sodium (Lovenox -) 100 mg SQ BID [facility] Last Admin: 12/20/19 10:33 Dose: 100 mg Documented by: CT chest 12/18 No aortic aneurysm is noted. Evaluation for possible aortic dissection cannot be performed on this exam due to lack of intravascular contrast. Additional evaluation utilizing noncontrast MRI/MRA may be considered versus CT angiography with utilization of a premedication protocol. The main pulmonary artery is somewhat dilated with a 3.3 cm diameter suggestive of increased pulmonary arterial pressure. Follow-up evaluation is suggested. No infiltrate or pleural effusion is seen. There appears to be diffuse enlargement of the partially imaged thyroid gland. Clinical/laboratory correlation is suggested as well as correlation with sonography. Duplex lower extremities 12/18 There is no sonographic evidence of deep vein thrombosis. If there is clinical concern for possible isolated calf DVT or if there is a clinical diagnosis of uncomplicated superficial thrombophlebitis, then correlation with close follow up sonography is sug gested. Echocardiogram 12/19 LV size, thickness and function are normal, EF 72%. Grade I diastolic dysfunction (abnormal relaxation pattern). RV is normal in size and function. Normal L and R atrial size and function. MV normal, AV and PV normal in structure and function ASSESSMENT/PLAN: 39 yo F with PMH HTN, SLE, DVT (10 years ago, was treated with coumadin), gastric bypass in 2018, seizure disorder, obesity presented to ED with SOB and L sided chest pain 4 days ago. Pt is currently admitted for suspicion of pulmonary embolism. Shortness of breath, etiology to be determined. Suspected PE vs. pleuritis secondary to viral infection -Given history of SLE, DVT and obesity, pt has risks for PE -CTA not done due to allergies to contrast -CT chest as above, evidence of dilated main pulmonary artery, suggestive of INC pulmonary arterial pressure. -Echocardiogram and duplex lower extremities as above -EKG without significant change from previous -c/w lovenox 100mg BID -f/u V/Q scan - will f/u ESR, CRP -Supplemental O2 to keep SpO2 >90% -Pulmonary consulted. Thyromegaly -As per CT above -Low TSH and low free T4 -Will need outpatient thyroid US. -F/u total and free T3 Seizure disorder -c/w home dose carbamazepine 200mg BID Ppx -DVT: lovenox FEN -no standing fluids -replete lytes as needed -low sodium diet COVID negative 12/18 Dispo: continue to monitor on tele Visit type - Emergency Visit Emergency Visit: Yes ED Registration Date: 12/19/19 Care time: The patient presented to the Emergency Department on the above date and was hospitalized for further evaluation of their emergent condition. - New Patient This patient is new to me today: No - Critical Care Critical Care patient: No ATTENDING PHYSICIAN STATEMENT I saw and evaluated the patient. I reviewed the resident's note and discussed the case with the resident. I agree with the resident's findings and plan as documented. SUBJECTIVE: OBJECTIVE: ASSESSMENT AND PLAN:
[2019-12-20] MEDS ORDERED: ACETAMINOPHEN 1000 MG/100 ML VIAL (NON FORMULARY) IVPB ONE (22:37)
[2019-12-21 07:40] LABS: HEMOGLOBIN 12.1 GM/dL (10.7-15.3); MCH 31.9 pg (25.7-33.7); MCHC 34.7 g/dl (32.0-36.0); MEAN PLT VOLUME 8.1 fl (7.5-11.1); PLATELET COUNT 244 K/MM3 (134-434); RBC 3.81 M/mm3 (3.60-5.2); RDW 13.4 % (11.6-15.6); WHITE BLOOD COUNT 5.4 K/mm3 (4.0-10.0)
[2019-12-21 08:12] LABS: ANION GAP 7 MMOL/L (8-16); CALCIUM 8.3 mg/dL (8.5-10.1); CHLORIDE 110 mmol/L (98-107); CO2 25 mmol/L (21-32); CREATININE 0.6 mg/dL (0.55-1.3); GLUCOSE,RANDOM 124 mg/dL (74-106); POTASSIUM 3.6 mmol/L (3.5-5.1); SODIUM 142 mmol/L (136-145)
--- NOTE | 2019-12-21 10:02 | PN ---
Progress Note, Physician History of Present Illness: pulmonary alert,no change ,c/o sob and cp - Current Medication List Current Medications: Active Medications Carbamazepine (Tegretol -) 200 mg PO BID [facility] Last Admin: 12/20/19 21:37 Dose: 200 mg Documented by: Enoxaparin Sodium (Lovenox -) 100 mg SQ BID [facility] Last Admin: 12/20/19 21:37 Dose: 100 mg Documented by: - Objective Vital Signs: Vital Signs Temperature 97.0 F L 12/21/19 06:33 Pulse Rate 75 12/21/19 06:33 Respiratory Rate 20 12/21/19 06:33 Blood Pressure 130/85 12/21/19 06:33 O2 Sat by Pulse Oximetry (%) 93 L 12/21/19 02:00 Constitutional: Yes: Well Nourished, Calm Eyes: Yes: WNL HENT: Yes: WNL Neck: Yes: WNL Cardiovascular: Yes: Regular Rate and Rhythm, S1, S2 Respiratory: Yes: CTA Bilaterally Gastrointestinal: Yes: Normal Bowel Sounds, Soft Extremities: Yes: WNL Edema: No Labs: CBC, BMP 12/21/19 06:35 12/21/19 06:35 INR, PTT INR 1.10 (0.83-1.09) H 12/20/19 06:09 Fibrinogen 284.0 mg/dL (238-498) 12/19/19 20:50 Laboratory Tests 12/20/19 13:00 ESR 2 Problem List - Problems (1) HTN (hypertension) Code(s): I10 - ESSENTIAL (PRIMARY) HYPERTENSION (2) Chest pain Code(s): R07.9 - CHEST PAIN, UNSPECIFIED Qualifiers: Chest pain type: chest pain on breathing Qualified Code(s): R07.1 - Chest pain on breathing; R07.81 - Pleurodynia (3) Shortness of breath Code(s): R06.02 - SHORTNESS OF BREATH (4) SLE (systemic lupus erythematosus) Code(s): M32.9 - SYSTEMIC LUPUS ERYTHEMATOSUS, UNSPECIFIED (5) H/O deep venous thrombosis Code(s): Z86.718 - PERSONAL HISTORY OF OTHER VENOUS THROMBOSIS AND EMBOLISM Assessment/Plan IMP CP/DYSPNEA DOUBT PE H/O SLE H/O DVT UNPROVOKED NEVER WORKED UP FOR HYPER-COAGULABLE STATE DIASTOLIC DYSFUNCTION ASTHMA SEIZURE DISORDER HTN H/O GASTRIC BYPASS OBESITY PLAN O2 NEEDED ANALGESICS INHALED BRONCHODILATORS NEEDED V/Q DR ROSE Problem List - Problems (1) HTN (hypertension) Code(s): I10 - ESSENTIAL (PRIMARY) HYPERTENSION (2) Chest pain Code(s): R07.9 - CHEST PAIN, UNSPECIFIED Qualifiers: Chest pain type: chest pain on breathing Qualified Code(s): R07.1 - Chest pain on breathing; R07.81 - Pleurodynia (3) Shortness of breath Code(s): R06.02 - SHORTNESS OF BREATH (4) SLE (systemic lupus erythematosus) Code(s): M32.9 - SYSTEMIC LUPUS ERYTHEMATOSUS, UNSPECIFIED (5) H/O deep venous thrombosis Code(s): Z86.718 - PERSONAL HISTORY OF OTHER VENOUS THROMBOSIS AND EMBOLISM
[2019-12-21] MEDS: ENOXAPARIN NA (PORCINE) 100 MG/1 ML DISP.SYRIN SQ SCH (12:43)
[2019-12-21] MEDS: carBAMazepine 200 MG TABLET PO SCH ×2 (12:43→21:30)
--- NOTE | 2019-12-21 13:25 | PN ---
Physical Exam: SUBJECTIVE: Patient seen and examined. Overnight, pt complained of chest pain on inspiration and her chest felt "heavy". Given 1g ofirmev. Pt stated this morning that ofirmev had given her minimal relief. OBJECTIVE: Vital Signs Period Temp Pulse Resp BP Sys/Nichols Pulse Ox Last 24 Hr 97.0 F-98.1 F 73-106 20-24 109-130/67-85 93-97 GENERAL: Awake, alert. Not in acute distress. HEENT: NCAT, EOMI, PERRL. Moist mucus membranes. CARDIAC: RRR, S1, S2 present. No murmurs. PULMONARY: CTA b/l. No wheezes or accessory muscle use. ABDOMEN: Obese, nontender to palpation, nondistended. Normoactive bowel sounds EXTREMITIES: Warm, well-perfused. No edema. 2+ pulses b/l. SKIN: Tattoos on skin. Warm, dry. Laboratory Last Values WBC 5.4 K/mm3 (4.0-10.0) 12/21/19 06:35 RBC 3.81 M/mm3 (3.60-5.2) 12/21/19 06:35 Hgb 12.1 GM/dL (10.7-15.3) 12/21/19 06:35 Hct 35.0 % (32.4-45.2) 12/21/19 06:35 MCV 92.0 fl (80-96) 12/21/19 06:35 MCH 31.9 pg (25.7-33.7) 12/21/19 06:35 MCHC 34.7 g/dl (32.0-36.0) 12/21/19 06:35 RDW 13.4 % (11.6-15.6) 12/21/19 06:35 Plt Count 244 K/MM3 (134-434) 12/21/19 06:35 MPV 8.1 fl (7.5-11.1) 12/21/19 06:35 Absolute Neuts (auto) 2.4 K/mm3 (1.5-8.0) 12/20/19 06:09 Neutrophils % 42.7 % (42.8-82.8) L D 12/20/19 06:09 Lymphocytes % 46.8 % (8-40) H D 12/20/19 06:09 Monocytes % 6.8 % (3.8-10.2) 12/20/19 06:09 Eosinophils % 3.4 % (0-4.5) 12/20/19 06:09 Basophils % 0.3 % (0-2.0) 12/20/19 06:09 Nucleated RBC % 0 % (0-0) 12/20/19 06:09 ESR 2 mm/hr (0-20) 12/20/19 13:00 PT with INR 12.90 SEC (9.7-13.0) 12/20/19 06:09 INR 1.10 (0.83-1.09) H 12/20/19 06:09 PTT (Actin FS) 38.1 SECONDS (25.2-36.5) H 12/21/19 06:35 Fibrinogen 284.0 mg/dL (238-498) 12/19/19 20:50 D-Dimer 474 ng/ml (0-500) 12/19/19 19:50 Sodium 142 mmol/L (136-145) 12/21/19 06:35 Potassium 3.6 mmol/L (3.5-5.1) 12/21/19 06:35 Chloride 110 mmol/L (98-107) H 12/21/19 06:35 Carbon Dioxide 25 mmol/L (21-32) 12/21/19 06:35 Anion Gap 7 MMOL/L (8-16) L 12/21/19 06:35 BUN 8.0 mg/dL (7-18) 12/21/19 06:35 Creatinine 0.6 mg/dL (0.55-1.3) 12/21/19 06:35 Est GFR (CKD-EPI)AfAm 134.01 12/21/19 06:35 Est GFR (CKD-EPI)NonAf 115.63 12/21/19 06:35 Random Glucose 124 mg/dL (74-106) H 12/21/19 06:35 Hemoglobin A1c % 5.0 % (4.2-6.3) 12/20/19 06:09 Calcium 8.3 mg/dL (8.5-10.1) L 12/21/19 06:35 Total Bilirubin 0.2 mg/dL (0.2-1) 12/20/19 06:09 AST 14 U/L (15-37) L 12/20/19 06:09 ALT 38 U/L (13-61) 12/20/19 06:09 Alkaline Phosphatase 67 U/L (45-117) 12/20/19 06:09 Creatine Kinase 88 U/L (26-192) 12/19/19 15:20 Troponin I < 0.02 ng/ml (0.00-0.05) 12/19/19 20:50 C-Reactive Protein < 0.3 MG/DL (0.00-0.3) 12/21/19 06:35 Total Protein 6.2 g/dl (6.4-8.2) L 12/20/19 06:09 Albumin 3.3 g/dl (3.4-5.0) L 12/20/19 06:09 Triglycerides 227 mg/dL (0-150) H 12/20/19 06:09 Cholesterol 169 mg/dL (50-200) 12/20/19 06:09 Total LDL Cholesterol 81 mg/dL (5-100) 12/20/19 06:09 HDL Cholesterol 68 mg/dL (40-60) H 12/20/19 06:09 TSH 0.26 uIU/ml (0.358-3.74) L 12/19/19 20:50 Free T4 0.71 ng/dl (0.76-1.46) L 12/19/19 20:50 Free T3 2.3 pg/ml (2.0-4.4) 12/20/19 14:58 Resin T3 Uptake 30.2 % (30-39) 12/20/19 06:09 Urine Color Dk yellow 12/19/19 15:20 Urine Appearance Clear 12/19/19 15:20 Urine pH >= 9.0 (5.0-8.0) H 12/19/19 15:20 Ur Specific [place] 1.024 (1.010-1.035) 12/19/19 15:20 Urine Protein 1+ (NEGATIVE) H 12/19/19 15:20 Urine Glucose (UA) Negative (NEGATIVE) 12/19/19 15:20 Urine Ketones Negative (NEGATIVE) 12/19/19 15:20 Urine Blood Negative (NEGATIVE) 12/19/19 15:20 Urine Nitrite Negative (NEGATIVE) 12/19/19 15:20 Urine Bilirubin Negative (NEGATIVE) 12/19/19 15:20 Urine Urobilinogen 0.2 mg/dL (0.2-1.0) 12/19/19 15:20 Ur Leukocyte Esterase Negative (NEGATIVE) 12/19/19 15:20 Urine WBC (Auto) 69.6 /uL (0-25.8) 12/19/19 15:20 Urine RBC (Auto) 42 /uL (0-23.9) 12/19/19 15:20 Urine Casts (Auto) 1 /uL (0-3.1) 12/19/19 15:20 U Epithel Cells (Auto) 30 /uL (0-25.1) 12/19/19 15:20 Urine Bacteria (Auto) 103 /uL (0-1359) 12/19/19 15:20 Urine HCG, Qual Negative 12/19/19 15:20 Opiates Screen Negative ng/ml (RRKVPH=832) 12/19/19 22:10 Methadone Screen Negative ng/ml (VYRMOJ=259) 12/19/19 22:10 Barbiturate Screen Negative ng/ml (YZPUQA=405) 12/19/19 22:10 Phencyclidine Screen Negative ng/ml (CUTOFF=25) 12/19/19 22:10 Ur Amphetamines Screen Negative ng/ml (JHXBKU=247) 12/19/19 22:10 MDMA (Ecstasy) Screen Negative ng/ml (VUZALW=944) 12/19/19 22:10 Benzodiazepines Screen Negative ng/ml (BOKARP=530) 12/19/19 22:10 Cocaine Screen Negative ng/ml (NJLRGP=666) 12/19/19 22:10 U Marijuana (THC) Screen Negative ng/ml (CUTOFF=50) 12/19/19 22:10 COVID-19 (DORA) Not detected (Not Detected) 12/19/19 17:00 Active Medications Carbamazepine (Tegretol -) 200 mg PO BID [facility] Last Admin: 12/21/19 12:43 Dose: 200 mg Documented by: Enoxaparin Sodium (Lovenox -) 100 mg SQ BID [facility] Last Admin: 12/21/19 12:43 Dose: 100 mg Documented by: CT chest 12/18 No aortic aneurysm is noted. Evaluation for possible aortic dissection cannot be performed on this exam due to lack of intravascular contrast. Additional evaluation utilizing noncontrast MRI/MRA may be considered versus CT angiography with utilization of a premedication protocol. The main pulmonary artery is somewhat dilated with a 3.3 cm diameter suggestive of increased pulmonary arterial pressure. Follow-up evaluation is suggested. No infiltrate or pleural effusion is seen. There appears to be diffuse enlargement of the partially imaged thyroid gland. Clinical/laboratory correlation is suggested as well as correlation with sonography. Duplex lower extremities 12/18 There is no sonographic evidence of deep vein thrombosis. If there is clinical concern for possible isolated calf DVT or if there is a clinical diagnosis of uncomplicated superficial thrombophlebitis, then correlation with close follow up sonography is sug gested. Echocardiogram 12/19 LV size, thickness and function are normal, EF 72%. Grade I diastolic dysfunction (abnormal relaxation pattern). RV is normal in size and function. Normal L and R atrial size and function. MV normal, AV and PV normal in structure and function V/Q scan 12/20 There is normal ventilation and perfusion to the right and left lungs with no evidence of mismatched perfusion defects. CXR 12/20 2 views of the chest were submitted. There are clear well aerated lungs, normal mediastinum and sharp angles. The soft tissues are intact. Acute process is not seen. There is a new ringlike density projects over the peripheral left chest which was not present on 12/19/2019 and most likely is artifactual. The bones are intact. Correlation recommended. ASSESSMENT/PLAN: 39 yo F with PMH HTN, SLE, DVT (10 years ago, was treated with coumadin), gastric bypass in 2019, seizure disorder, obesity presented to ED with SOB and L sided chest pain 4 days ago. Pt is currently admitted for suspicion of pulmonary embolism. Shortness of breath, etiology to be determined. Pleuritis secondary to viral infection vs. costochondritis vs. Unlikely PE vs. Pericarditis -Given history of SLE, DVT and obesity, pt has risks for PE. Negative V/Q scan and echo for R heart strain makes PE unlikely -CTA not done due to allergies to contrast -CT chest as above, evidence of dilated main pulmonary artery, suggestive of INC pulmonary arterial pressure. -Echocardiogram and duplex lower extremities as above -EKG without significant change from previous - V/Q scan normal - d/c lovenox 100mg BID given negative V/Q - ESR and CRP normal -Supplemental O2 to keep SpO2 >90% -Pulmonary consulted. -c/w acetaminophen 650mg q6h PRN for pain. If insufficient analgesia, will consider NSAID Thyromegaly -As per CT above -Low TSH and low free T4 -Will need outpatient thyroid US. -F/u total and free T3 Seizure disorder -c/w home dose carbamazepine 200mg BID Ppx -DVT: lovenox FEN -no standing fluids -replete lytes as needed -low sodium diet COVID negative 12/18 Dispo: continue to monitor on tele Visit type - Emergency Visit Emergency Visit: Yes ED Registration Date: 12/19/19 Care time: The patient presented to the Emergency Department on the above date and was hospitalized for further evaluation of their emergent condition. - New Patient This patient is new to me today: No - Critical Care Critical Care patient: No ATTENDING PHYSICIAN STATEMENT I saw and evaluated the patient. I reviewed the resident's note and discussed the case with the resident. I agree with the resident's findings and plan as documented. SUBJECTIVE: OBJECTIVE: ASSESSMENT AND PLAN:
--- NOTE | 2019-12-21 15:59 | PN ---
Teaching Attending Note Name of Resident: Joann Stanford ATTENDING PHYSICIAN STATEMENT I saw and evaluated the patient. I reviewed the resident's note and discussed the case with the resident. I agree with the resident's findings and plan as documented. SUBJECTIVE: Patient still short of breath, not requiring o2 OBJECTIVE: Vital Signs Period Temp Pulse Resp BP Sys/Nichols Pulse Ox Last 24 Hr 97.0 F-98.2 F 71-100 20-24 112-130/67-85 93-97 Physical exam as per resident note ASSESSMENT AND PLAN: 39 F h/o SLE, DVT 10 years ago (was on Coumadin), gastric bypass 2018, seizure disorder, asthma, HTN, obesity, fibromyalgia, presents with sudden onset SOB and L sided CP: Shortness of breath O2 support as needed Echo without R heart Strain VQ scan negative CT chest with dilated Pulmonary artery DC theraputic lovenox at this time Troponin Negative Monitor on tele Appreciate Pulm recs Hyperthyroidism Patient denies any supplement use, T3 and T4 normal Patient noted to have enlarged thyroid gland on CT scan patient will need Thyroid US as outpatient and possible RAIU scan if able Ppx Lovenox
[2019-12-21] MEDS ORDERED: MAGNESIUM 1GM/D5W - 1 GM/100 ML IVPB IVPB ONE (16:04)
[2019-12-21] MEDS ORDERED: PT OWN MED DRAWER 7, Y5N ONE (20:23)
[2019-12-22 06:32] LABS: HEMOGLOBIN 12.5 GM/dL (10.7-15.3); MCHC 34.6 g/dl (32.0-36.0); MEAN CELL VOLUME 92.4 fl (80-96); MEAN PLT VOLUME 7.8 fl (7.5-11.1); PLATELET COUNT 249 K/MM3 (134-434); RDW 13.4 % (11.6-15.6); WHITE BLOOD COUNT 4.8 K/mm3 (4.0-10.0)
[2019-12-22 07:02] LABS: BLOOD UREA NITROGEN 8.8 mg/dL (7-18); CALCIUM 8.7 mg/dL (8.5-10.1); CREATININE 0.6 mg/dL (0.55-1.3); POTASSIUM 3.9 mmol/L (3.5-5.1)
[2019-12-22] MEDS ORDERED: PT OWN MED DRAWER 7, Y5N ONE ×3 (09:14→22:56)
[2019-12-22] MEDS: carBAMazepine 200 MG TABLET PO SCH ×2 (09:34→22:33)
--- NOTE | 2019-12-22 12:05 | PN ---
Progress Note (short form) - Note Progress Note: Resting in NAD on RA. Feels about the same. No acute events overnight. Intake & Output 12/19/19 12/20/19 12/21/19 12/22/19 23:59 23:59 23:59 23:59 Intake Total 1100 900 670 250 Balance 1100 900 670 250 Weight 229 lb 3.2 oz Last Vital Signs Temp Pulse Resp BP Pulse Ox 98.2 F 88 22 H 125/7 L 95 12/22/19 10:00 12/22/19 10:00 12/22/19 10:00 12/22/19 10:00 12/22/19 10:00 Active Medications Acetaminophen (Tylenol -) 650 mg PO Q6H PRN PRN Reason: PAIN LEVEL 6-10 Carbamazepine (Tegretol -) 200 mg PO BID [facility] Last Admin: 12/22/19 09:34 Dose: 200 mg Documented by: Constitutional: Yes: Obese, NAD Eyes: Yes: WNL HENT: Yes: WNL Neck: Yes: WNL Cardiovascular: Yes: Regular Rate and Rhythm, S1, S2 Respiratory: Yes: CTA Bilaterally Gastrointestinal: Yes: Normal Bowel Sounds, Soft Extremities: Yes: WNL Edema: No Labs: Laboratory Results - last 24 hr 12/21/19 12/22/19 12/22/19 06:35 05:50 05:50 WBC 4.8 RBC 3.90 Hgb 12.5 Hct 36.0 MCV 92.4 MCH 32.0 MCHC 34.6 RDW 13.4 Plt Count 249 MPV 7.8 PTT (Actin FS) 33.6 Sodium Potassium Chloride Carbon Dioxide Anion Gap BUN Creatinine Est GFR (CKD-EPI)AfAm Est GFR (CKD-EPI)NonAf Random Glucose Calcium Magnesium Total T3 108.00 12/22/19 05:50 WBC RBC Hgb Hct MCV MCH MCHC RDW Plt Count MPV PTT (Actin FS) Sodium 143 Potassium 3.9 Chloride 112 H Carbon Dioxide 25 Anion Gap 6 L BUN 8.8 Creatinine 0.6 Est GFR (CKD-EPI)AfAm 134.01 Est GFR (CKD-EPI)NonAf 115.63 Random Glucose 96 Calcium 8.7 Magnesium 2.0 Total T3 Problem List - Problems (1) HTN (hypertension) Code(s): I10 - ESSENTIAL (PRIMARY) HYPERTENSION (2) Chest pain Code(s): R07.9 - CHEST PAIN, UNSPECIFIED Qualifiers: Chest pain type: chest pain on breathing Qualified Code(s): R07.1 - Chest pain on breathing; R07.81 - Pleurodynia (3) Shortness of breath Code(s): R06.02 - SHORTNESS OF BREATH (4) SLE (systemic lupus erythematosus) Code(s): M32.9 - SYSTEMIC LUPUS ERYTHEMATOSUS, UNSPECIFIED (5) H/O deep venous thrombosis Code(s): Z86.718 - PERSONAL HISTORY OF OTHER VENOUS THROMBOSIS AND EMBOLISM Assessment/Plan IMP NORMAL V/Q IMAGING WITHOUT EVIDENCE OF VTE H/O SLE H/O DVT UNPROVOKED NEVER WORKED UP FOR HYPER-COAGULABLE STATE DIASTOLIC DYSFUNCTION ASTHMA SEIZURE DISORDER HTN H/O GASTRIC BYPASS OBESITY MADRIGAL LIKELY DUE TO PAH DUE TO SLE PLAN: ANALGESICS PRN NO SMOKING OUTPATIENT PFTS WILL NEED REPEAT OUTPATIENT NPSG DC PLANNING DR BARKLEY
--- NOTE | 2019-12-22 12:07 | CON.CARD ---
Consult Consult Specialty:: cardiology Reason for Consultation:: chest pain - History of Present Illness Chief Complaint: Pt A&Ox3; during physical exam, asked to take deep breaths, the central chest pain is elicited (mderately intense; sharp; disappears between breaths). History of Present Illness: Ms. Matta is a 39 y/o black female with a PMH of SLE and RA (on Paquenil and Prednisone), HTN, seizures, DVT 10 years ago, morbid obesity (s/p gastric bypass surgery 2019; weighed nearly 300 lbs at the time); anxiety; elevated triglycerides, ?hypothyroidism, now presenting to the ED because of 4 days of chest pain. The pain started abruptly; denies any inciting incident. It is constant, sharp, left sided, and occasionally radiates to her back. The pain is worse with deep breaths. She is also having increased SOB, worse with exertion and is also complaining of lightheadedness. She denies any LOC. She has experienced similar pain before (beginning about a year ago), but never this bad. She denies any associated N/V, abdominal pain, headache, blurry vision, or pain in her calves. Admits to DVT over 10 years ago, and she was anticoagulated with Coumadin. No longer on anticoagulants. Patient reports IV contrast allergy; it makes her SOB. Pt says she walks regularly, including up and down stairs, but has been increasingly dyspneic for the past week. She denies recent travel, sick contacts, hx of malignancy, cough, or hemoptysis. - History Source History Provided By: Patient, Medical Record Limitations to Obtaining History: No Limitations - Past Medical History Cardio/Vascular: Yes: Deep Vein Thrombosis, HTN Reproductive: No: Postmenopausal ...LMP: 12/13/19 ...: No Heme/Onc: No: Anemia - Alcohol/Substance Use Hx Alcohol Use: No - Smoking History Smoking history: Never smoked Have you smoked in the past 12 months: No Home Medications - Allergies Allergies/Adverse Reactions: Allergies Allergy/AdvReac Type Severity Reaction Status Date / Time Iodinated Contrast Media Allergy Verified 12/19/19 15:00 sumatriptan [From Imitrex] Allergy Difficulty Verified 12/19/19 15:00 Breathing - Home Medications Home Medications: Ambulatory Orders Acetaminophen [Tylenol .Regular Strength -] 650 mg PO Q6H PRN #60 tablet 12/22/19 Amitriptyline HCl [Elavil -] 150 mg PO HS 12/22/19 Carbamazepine [Carbamazepine ER] 200 mg PO Q12H 12/22/19 Hydroxychloroquine Sulfate [Plaquenil] 200 mg PO DAILY 12/22/19 Prednisone 5 mg PO BID 12/22/19 Topiramate [Topamax] 50 mg PO BID 12/22/19 Family Medical History Family Hx Cardiac Disorders: Grandmother (maternal) ( CVA in her ?60s) Review of Systems - Review of Systems Constitutional: reports: Weakness Eyes: reports: No Symptoms HENT: reports: No Symptoms Neck: reports: No Symptoms Cardiovascular: reports: Chest Pain Respiratory: reports: SOB on Exertion Gastrointestinal: reports: No Symptoms Genitourinary: reports: No Symptoms Breasts: reports: No Symptoms Reported Musculoskeletal: reports: Joint Pain Integumentary: reports: No Symptoms Neurological: reports: Weakness Endocrine: reports: Other Hematology/Lymphatic: reports: No Symptoms Psychiatric: reports: Anxiety - Risk Factors Known Risk Factors: Yes: Diabetes Mellitus, Family History, Gender, Hypercholesterolemia, Hypertension, Race, Other (diastolic CHF). No: Smoking Vital Signs: Vital Signs Temperature 98.2 F 12/22/19 10:00 Pulse Rate 88 12/22/19 10:00 Respiratory Rate 22 H 12/22/19 10:00 Blood Pressure 125/7 L 12/22/19 10:00 O2 Sat by Pulse Oximetry (%) 95 12/22/19 10:00 Constitutional: Yes: Calm Eyes: Yes: WNL HENT: Yes: WNL Neck: Yes: WNL Respiratory: Yes: Regular, Diminished, Other Gastrointestinal: Yes: Soft Renal/: No: Anuria Cardiovascular: Yes: Regular Rate and Rhythm JVD: No Carotid Bruit: No Heart Sounds: Yes: S1, S2 Murmur: Yes: Systolic Murmur, Grade 1 Musculoskeletal: Yes: WNL, Joint Stiffness Extremities: Yes: WNL Edema: No Peripheral Pulses WNL: Yes Integumentary: Yes: Tattoos Neurological: Yes: WNL Psychiatric: Yes: Alert, Oriented, Other - Other Data Labs, Other Data: CBC, BMP 12/22/19 05:50 12/22/19 05:50 INR, PTT INR 1.10 (0.83-1.09) H 12/20/19 06:09 Fibrinogen 284.0 mg/dL (238-498) 12/19/19 20:50 Echo: Report Reviewed Ejection Fraction %: LVEF > or = 40 % Imaging - Results Chest X-ray: Image Reviewed EKG: Image Reviewed Assessment/Plan Atypical chest pain for the past year; elicited by deep breaths. SLE; RA HTN morbid obesity; s/p gastric bypass surgery hypertriglyceridemia seizures ?thyroid dysfunction DVT 2009; not on anticoagulants after a few months of warfarin at that time EKG NSR; septal infarct (noted since at least 2015) ECHO: normal LVEF; abnormal diastolic compliance; no significant valvular disease. TNI < 0.02 x 2; CK WNL. 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
--- NOTE | 2019-12-22 12:49 | PN ---
Teaching Attending Note Name of Resident: Joann Stanford ATTENDING PHYSICIAN STATEMENT I saw and evaluated the patient. I reviewed the resident's note and discussed the case with the resident. I agree with the resident's findings and plan as documented. SUBJECTIVE: Patient no longer short of breath Still with chest pain--not reproducible OBJECTIVE: Vital Signs Period Temp Pulse Resp BP Sys/Nichols Pulse Ox Last 24 Hr 97.9 F-98.3 F 71-96 20-22 114-133/7-86 95-97 Physical Exam as per resident note Chest pain improves with leaning forward No pericardial rub auscultated ASSESSMENT AND PLAN: 39 F h/o SLE, DVT 10 years ago (was on Coumadin), gastric bypass 2019, seizure disorder, asthma, HTN, obesity, fibromyalgia, presents with sudden onset SOB and L sided CP: Shortness of breath: Resolved Echo, VQ Scan, CT Chest Reviewed Ruled out PE, ACS Can be Pericarditis, however patient does not have any EKG changes suggestive of Pericarditis. No elevation in CRP/ESR Given patient's Hx of Gastric bypass, risks of presumptive treatment of pericarditis with high dose nsaids outweigh benefits Defer to Cardiology assessment Appreciate Pulm recs Hyperthyroidism Patient denies any supplement use, T3 and T4 normal Patient noted to have enlarged thyroid gland on CT scan patient will need Thyroid US as outpatient and possible RAIU scan if able SLE Continue Plaquinil, Prednisone Migraine Continue Topomax Seizure disorder continue carbemazapine Ppx Lovenox Dispo: Can discharge home today pending cardilogy eval
--- NOTE | 2019-12-22 13:34 | EKG ---
Test Reason : Blood Pressure : / mmHG Vent. Rate : 095 BPM Atrial Rate : 095 BPM P-R Int : 178 ms QRS Dur : 094 ms QT Int : 358 ms P-R-T Axes : 051 -16 052 degrees QTc Int : 449 ms NORMAL SINUS RHYTHM CANNOT RULE OUT ANTEROSEPTAL INFARCT (CITED ON OR BEFORE 31-OCT-2017) ABNORMAL ECG WHEN COMPARED WITH ECG OF 19-DEC-2019 14:57, QUESTIONABLE CHANGE IN QRS AXIS T WAVE INVERSION NO LONGER EVIDENT IN INFERIOR LEADS NONSPECIFIC T WAVE ABNORMALITY NOW EVIDENT IN LATERAL LEADS Confirmed by KEVIN FRASER MD ([id number]) on 12/22/2019 1:34:19 PM Referred By: Confirmed By:KEVIN FRASER MD
--- NOTE | 2019-12-22 14:18 | DS ---
Physical Exam: SUBJECTIVE: Patient seen and examined. Pt continues to complain of chest discomfort without relief. No acute events on telemetry. Pt stated discomfort improves with leaning forward and worsens with deep inspiration. OBJECTIVE: Vital Signs Period Temp Pulse Resp BP Sys/Nichols Pulse Ox Last 24 Hr 97.9 F-98.3 F 79-96 20-22 114-133/7-86 95-97 PHYSICAL EXAM GENERAL: Awake, alert. Not in acute distress. HEENT: NCAT, EOMI, PERRL. Moist mucus membranes. CARDIAC: RRR, S1, S2 present. No murmurs. No pericardial rub. PULMONARY: CTA b/l. No wheezes or accessory muscle use. ABDOMEN: Obese, nontender to palpation, nondistended. Normoactive bowel sounds EXTREMITIES: Warm, well-perfused. No edema. 2+ pulses b/l. SKIN: Tattoos on skin. Warm, dry. LABS Laboratory Last Values WBC 4.8 K/mm3 (4.0-10.0) 12/22/19 05:50 RBC 3.90 M/mm3 (3.60-5.2) 12/22/19 05:50 Hgb 12.5 GM/dL (10.7-15.3) 12/22/19 05:50 Hct 36.0 % (32.4-45.2) 12/22/19 05:50 MCV 92.4 fl (80-96) 12/22/19 05:50 MCH 32.0 pg (25.7-33.7) 12/22/19 05:50 MCHC 34.6 g/dl (32.0-36.0) 12/22/19 05:50 RDW 13.4 % (11.6-15.6) 12/22/19 05:50 Plt Count 249 K/MM3 (134-434) 12/22/19 05:50 MPV 7.8 fl (7.5-11.1) 12/22/19 05:50 Absolute Neuts (auto) 2.4 K/mm3 (1.5-8.0) 12/20/19 06:09 Neutrophils % 42.7 % (42.8-82.8) L D 12/20/19 06:09 Lymphocytes % 46.8 % (8-40) H D 12/20/19 06:09 Monocytes % 6.8 % (3.8-10.2) 12/20/19 06:09 Eosinophils % 3.4 % (0-4.5) 12/20/19 06:09 Basophils % 0.3 % (0-2.0) 12/20/19 06:09 Nucleated RBC % 0 % (0-0) 12/20/19 06:09 ESR 2 mm/hr (0-20) 12/20/19 13:00 PT with INR 12.90 SEC (9.7-13.0) 12/20/19 06:09 INR 1.10 (0.83-1.09) H 12/20/19 06:09 PTT (Actin FS) 33.6 SECONDS (25.2-36.5) 12/22/19 05:50 Fibrinogen 284.0 mg/dL (238-498) 12/19/19 20:50 D-Dimer 474 ng/ml (0-500) 12/19/19 19:50 Sodium 143 mmol/L (136-145) 12/22/19 05:50 Potassium 3.9 mmol/L (3.5-5.1) 12/22/19 05:50 Chloride 112 mmol/L (98-107) H 12/22/19 05:50 Carbon Dioxide 25 mmol/L (21-32) 12/22/19 05:50 Anion Gap 6 MMOL/L (8-16) L 12/22/19 05:50 BUN 8.8 mg/dL (7-18) 12/22/19 05:50 Creatinine 0.6 mg/dL (0.55-1.3) 12/22/19 05:50 Est GFR (CKD-EPI)AfAm 134.01 12/22/19 05:50 Est GFR (CKD-EPI)NonAf 115.63 12/22/19 05:50 Random Glucose 96 mg/dL (74-106) 12/22/19 05:50 Hemoglobin A1c % 5.0 % (4.2-6.3) 12/20/19 06:09 Calcium 8.7 mg/dL (8.5-10.1) 12/22/19 05:50 Magnesium 2.0 mg/dL (1.8-2.4) 12/22/19 05:50 Total Bilirubin 0.2 mg/dL (0.2-1) 12/20/19 06:09 AST 14 U/L (15-37) L 12/20/19 06:09 ALT 38 U/L (13-61) 12/20/19 06:09 Alkaline Phosphatase 67 U/L (45-117) 12/20/19 06:09 Creatine Kinase 88 U/L (26-192) 12/19/19 15:20 Troponin I < 0.02 ng/ml (0.00-0.05) 12/19/19 20:50 C-Reactive Protein < 0.3 MG/DL (0.00-0.3) 12/21/19 06:35 Total Protein 6.2 g/dl (6.4-8.2) L 12/20/19 06:09 Albumin 3.3 g/dl (3.4-5.0) L 12/20/19 06:09 Triglycerides 227 mg/dL (0-150) H 12/20/19 06:09 Cholesterol 169 mg/dL (50-200) 12/20/19 06:09 Total LDL Cholesterol 81 mg/dL (5-100) 12/20/19 06:09 HDL Cholesterol 68 mg/dL (40-60) H 12/20/19 06:09 TSH 0.26 uIU/ml (0.358-3.74) L 12/19/19 20:50 Free T4 0.71 ng/dl (0.76-1.46) L 12/19/19 20:50 Free T3 2.3 pg/ml (2.0-4.4) 12/20/19 14:58 Total T3 108.00 ng/dl (71-180) 12/21/19 06:35 Resin T3 Uptake 30.2 % (30-39) 12/20/19 06:09 Urine Color Dk yellow 12/19/19 15:20 Urine Appearance Clear 12/19/19 15:20 Urine pH >= 9.0 (5.0-8.0) H 12/19/19 15:20 Ur Specific [place] 1.024 (1.010-1.035) 12/19/19 15:20 Urine Protein 1+ (NEGATIVE) H 12/19/19 15:20 Urine Glucose (UA) Negative (NEGATIVE) 12/19/19 15:20 Urine Ketones Negative (NEGATIVE) 12/19/19 15:20 Urine Blood Negative (NEGATIVE) 12/19/19 15:20 Urine Nitrite Negative (NEGATIVE) 12/19/19 15:20 Urine Bilirubin Negative (NEGATIVE) 12/19/19 15:20 Urine Urobilinogen 0.2 mg/dL (0.2-1.0) 12/19/19 15:20 Ur Leukocyte Esterase Negative (NEGATIVE) 12/19/19 15:20 Urine WBC (Auto) 69.6 /uL (0-25.8) 12/19/19 15:20 Urine RBC (Auto) 42 /uL (0-23.9) 12/19/19 15:20 Urine Casts (Auto) 1 /uL (0-3.1) 12/19/19 15:20 U Epithel Cells (Auto) 30 /uL (0-25.1) 12/19/19 15:20 Urine Bacteria (Auto) 103 /uL (0-1359) 12/19/19 15:20 Urine HCG, Qual Negative 12/19/19 15:20 Opiates Screen Negative ng/ml (BHWIAE=945) 12/19/19 22:10 Methadone Screen Negative ng/ml (OUDXNE=424) 12/19/19 22:10 Barbiturate Screen Negative ng/ml (HUCBAE=492) 12/19/19 22:10 Phencyclidine Screen Negative ng/ml (CUTOFF=25) 12/19/19 22:10 Ur Amphetamines Screen Negative ng/ml (RRDCWI=265) 12/19/19 22:10 MDMA (Ecstasy) Screen Negative ng/ml (ECCKLT=351) 12/19/19 22:10 Benzodiazepines Screen Negative ng/ml (UVAUIL=291) 12/19/19 22:10 Cocaine Screen Negative ng/ml (BIPTIZ=905) 12/19/19 22:10 U Marijuana (THC) Screen Negative ng/ml (CUTOFF=50) 12/19/19 22:10 COVID-19 (DORA) Not detected (Not Detected) 12/19/19 17:00 HOSPITAL COURSE: 39 yo F with PMH HTN, SLE, DVT (10 years ago, was treated with coumadin), gastric bypass in 2019, seizure disorder, obesity presented to ED with SOB and L sided chest pain 4 days ago. Pt was admitted for suspicion of pulmonary embolism. Cardiology and pulmonology consulted. Given history of SLE, DVT and obesity, pt had risks for PE. Pt placed on lovenox. However, negative V/Q scan and echo for R heart strain makes PE unlikely. CTA not done due to allergies to contrast. CT chest with evidence of dilated main pulmonary artery, suggestive of increased pulmonary arterial pressure. Echocardiogram was without evidence of R heart strain and duplex lower extremities negative. EKG on admission was without significant change from previous. Repeat EKG showed questionable changes in QRS axis and nonspecific T wave abnormality on lateral leads. Pt may require chest MRI and outpatient PFTs. Pt is currently stable for discharge home. Date of Admission:12/19/19 Date of Discharge: 12/22/19 Minutes to complete discharge: 36 Discharge Summary Problems reviewed: Yes Reason For Visit: SHORTNESS OF BREATH; CHEST PAIN Current Active Problems H/O deep venous thrombosis (Chronic) HTN (hypertension) (Chronic) SLE (systemic lupus erythematosus) (Chronic) Shortness of breath (Chronic) Condition: Stable - Instructions Diet, Activity, Other Instructions: Your visit: You came to the hospital due to shortness of breath and pain when you take a deep breath. You were admitted to the hospital to evaluate your symptoms. You had imaging of your chest, heart, and legs. You did a test calleda, "V/Q scan" to assess for any evidence of clots in your chest. Your V/Q scan results were normal. Your imaging showed some evidence of pulmonary artery dilation, which suggests increased pressure in that blood vessel. Your heart showed some evidence of dysfunction in its ability to relax. There were no concerning findings of your legs. Laboratory testing showed no evidence of damage to your heart nor signs of inflammation. While here, you were seen by a data collection specialist and a lung specialist. Suspicion for pericarditis or inflammation of the lining around your heart is low. It is suspected that your Lupus may be contributing to your feelings of chest discomfort. You are stable and may return home. Additional imaging findings: During imaging of your chest, there was an incidental finding of an enlarged thyroid. Please follow up with your primary care provider for further care of this finding. Medication: Please continue to take your home medications as prescribed: -Amitriptyline HCl (Elavil) 150mg by mouth at bedtime for nerve pain. -Carbamazepine 200mg by mouth every 12 hours and Topiramate (Topamax) 50mg by mouth twice a day for your seizure disorder. -Hydroxychloroquine Sulfate (Plaquenil) 200mg by mouth and Prednisone 5mg by mouth twice a day for your Lupus. - You may take acetaminophen 650mg every 6 hours as needed for your discomfort. Follow up: -Please make and appointment with your primary care provider, Dr. Angela, in 2 weeks. You may discuss your hospitalization. You will need to follow up with a thyroid ultrasound with your doctor as well. -Please make and appointment with your manager intel in 1 week. If you do not have one, a referal has been provided to Dr. Triana for management and medication optimization for your Lupus. -Please make and appointment with your infirmary attendant, Dr. Velazquez, in 1 week. You may discuss findings of your heart during this visit. You may need a chest MRI for further investigation of your symptoms. -Please make and appointment with your commercial loan assistant, Dr. Enrique, in 1 week. You can schedule for pulmonary function test and sleep study. Additional information: -You are being discharged to your home. -Please return to the Emergency Department if you experience worsening pain, fevers, chills, shortness of breath, or chest pain, or if you experience any worsening, new or concerning symptoms. Referrals: Melquiades Triana MD [Staff Physician] - 1 Week Gil Velazquez MD [Staff Physician] - 1 Week Otilio Angela [Primary Care Provider] - 2 Weeks Kwabena Enrique MD [Staff Physician] - Disposition: HOME - Home Medications Comprehensive Discharge Medication List: Ambulatory Orders Acetaminophen [Tylenol .Regular Strength -] 650 mg PO Q6H PRN #60 tablet 12/22/19 Amitriptyline HCl [Elavil -] 150 mg PO HS 12/22/19 Carbamazepine [Carbamazepine ER] 200 mg PO Q12H 12/22/19 Hydroxychloroquine Sulfate [Plaquenil] 200 mg PO DAILY 12/22/19 Prednisone 5 mg PO BID 12/22/19 Topiramate [Topamax] 50 mg PO BID 12/22/19 This patient is new to me today: No Emergency Visit: Yes ED Registration Date: 12/19/19 Care time: The patient presented to the Emergency Department on the above date and was hospitalized for further evaluation of their emergent condition. Critical Care patient: No - Discharge Referral Referred to [facility] No ATTENDING PHYSICIAN STATEMENT I saw and evaluated the patient. I reviewed the resident's note and discussed the case with the resident. I agree with the resident's findings and plan as documented. SUBJECTIVE: OBJECTIVE: ASSESSMENT AND PLAN:
--- NOTE | 2019-12-22 16:14 | EKG ---
Test Reason : Blood Pressure : / mmHG Vent. Rate : 106 BPM Atrial Rate : 106 BPM P-R Int : 178 ms QRS Dur : 096 ms QT Int : 352 ms P-R-T Axes : 060 -09 054 degrees QTc Int : 467 ms SINUS TACHYCARDIA SEPTAL INFARCT (CITED ON OR BEFORE 31-OCT-2017) ABNORMAL ECG WHEN COMPARED WITH ECG OF 22-DEC-2019 13:25, QUESTIONABLE CHANGE IN INITIAL FORCES OF SEPTAL LEADS Confirmed by EVELIO VINCENT, KEVIN ([id number]) on 12/22/2019 4:14:07 PM Referred By: Confirmed By:KEVIN FRASER MD
[2019-12-22] MEDS ORDERED: LORazepam 2 MG/ML SDV VIAL IVPUSH ONE (20:58)
[2019-12-22] MEDS ORDERED: ACETAMINOPHEN 1000 MG/100 ML VIAL (NON FORMULARY) IVPB ONE (20:59)
[2019-12-23 06:55] LABS: HEMATOCRIT 34.7 % (32.4-45.2); HEMOGLOBIN 12.2 GM/dL (10.7-15.3); MCH 32.1 pg (25.7-33.7); MEAN CELL VOLUME 91.6 fl (80-96); PLATELET COUNT 243 K/MM3 (134-434); RBC 3.79 M/mm3 (3.60-5.2); RDW 13.3 % (11.6-15.6); WHITE BLOOD COUNT 6.6 K/mm3 (4.0-10.0)
[2019-12-23] MEDS ORDERED: PT OWN MED DRAWER 7, Y5N ONE ×2 (09:41→17:59)
[2019-12-23] MEDS ORDERED: predniSONE 5 MG TABLET (UD) PO SCH ×2 (10:00)
[2019-12-23] MEDS: carBAMazepine 200 MG TABLET PO SCH (10:01)
[2019-12-23] MEDS: HYDROXYCHLOROQUINE SO4 200 MG TABLET (FP) PO SCH (10:01)
--- NOTE | 2019-12-23 10:02 | PN ---
Progress Note, Physician History of Present Illness: Ms. Matta is a 39 y/o black female with a PMH of SLE and RA (on Paquenil and Prednisone), HTN, seizures, DVT 10 years ago, morbid obesity (s/p gastric bypass surgery 2019; weighed nearly 300 lbs at the time); anxiety; elevated triglycerides, ?hypothyroidism, now presenting to the ED because of 4 days of chest pain. The pain started abruptly; denies any inciting incident. It is constant, sharp, left sided, and occasionally radiates to her back. The pain is worse with deep breaths. She is also having increased SOB, worse with exertion and is also complaining of lightheadedness. She denies any LOC. She has experienced similar pain before (beginning about a year ago), but never this b ad. She denies any associated N/V, abdominal pain, headache, blurry vision, or pain in her calves. Admits to DVT over 10 years ago, and she was anticoagulated with Coumadin. No longer on anticoagulants. Patient reports IV contrast allergy; it makes her SOB. Pt says she walks regularly, including up and down stairs, but has been increasingly dyspneic for the past week. She denies recent travel, sick contacts, hx of malignancy, cough, or hemoptysis. - Current Medication List Current Medications: Active Medications Acetaminophen (Tylenol -) 650 mg PO Q6H PRN PRN Reason: PAIN LEVEL 6-10 Carbamazepine (Tegretol -) 200 mg PO DAILY NEYDA Hydroxychloroquine Sulfate (Plaquenil -) 200 mg PO DAILY NEYDA Prednisone 5 mg/ Prednisone 2 (mg) 7 mg PO DAILY NEYDA - Objective Vital Signs: Vital Signs Temperature 97.5 F L 12/23/19 01:44 Pulse Rate 789 H 12/23/19 05:00 Respiratory Rate 18 12/23/19 05:00 Blood Pressure 102/55 L 12/23/19 05:00 O2 Sat by Pulse Oximetry (%) 97 12/22/19 18:00 Eyes: Yes: WNL, Conjunctiva Clear, EOM Intact HENT: Yes: WNL, Atraumatic, Normocephalic Neck: Yes: WNL, Supple, Trachea Midline Cardiovascular: Yes: WNL, Regular Rate and Rhythm Respiratory: Yes: WNL, Regular, CTA Bilaterally Gastrointestinal: Yes: WNL, Normal Bowel Sounds Genitourinary: Yes: WNL Musculoskeletal: Yes: WNL Extremities: Yes: WNL Edema: No Integumentary: Yes: WNL Neurological: Yes: WNL, Alert, Oriented ...Motor Strength: WNL Psychiatric: Yes: WNL Labs: CBC, BMP 12/23/19 05:40 12/22/19 05:50 INR, PTT INR 1.10 (0.83-1.09) H 12/20/19 06:09 Fibrinogen 284.0 mg/dL (238-498) 12/19/19 20:50 Assessment/Plan Atypical chest pain for the past year; elicited by deep breaths. SLE; RA HTN morbid obesity; s/p gastric bypass surgery hypertriglyceridemia seizures ?thyroid dysfunction DVT 2009; not on anticoagulants after a few months of warfarin at that time EKG NSR; septal infarct (noted since at least 2015) ECHO: normal LVEF; abnormal diastolic compliance; no significant valvular disease. TNI < 0.02 x 2; CK WNL. 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
[2019-12-23] MEDS ORDERED: LORazepam 2 MG/ML SDV VIAL ONE ×2 (11:42→18:54)
[2019-12-23] MEDS ORDERED: LORazepam 2 MG TABLET PO ONE (14:00)
--- NOTE | 2019-12-23 15:48 | PN ---
Physical Exam: SUBJECTIVE: Patient seen and examined. No acute events overnight. Pt complains of persistent chest discomfort with deep breath. OBJECTIVE: Vital Signs Period Temp Pulse Resp BP Sys/Nichols Pulse Ox Last 24 Hr 97.5 F-98.2 F 71-789 18-22 95-128/50-76 97-97 GENERAL: Awake, alert. Not in acute distress. HEENT: NCAT, EOMI, PERRL. Moist mucus membranes. CARDIAC: RRR, S1, S2 present. No murmurs. No pericardial rub. PULMONARY: CTA b/l. No wheezes or accessory muscle use. ABDOMEN: Obese, nontender to palpation, nondistended. Normoactive bowel sounds EXTREMITIES: Warm, well-perfused. No edema. 2+ pulses b/l. SKIN: Tattoos on skin. Warm, dry. Laboratory Last Values WBC 6.6 K/mm3 (4.0-10.0) 12/23/19 05:40 RBC 3.79 M/mm3 (3.60-5.2) 12/23/19 05:40 Hgb 12.2 GM/dL (10.7-15.3) 12/23/19 05:40 Hct 34.7 % (32.4-45.2) 12/23/19 05:40 MCV 91.6 fl (80-96) 12/23/19 05:40 MCH 32.1 pg (25.7-33.7) 12/23/19 05:40 MCHC 35.0 g/dl (32.0-36.0) 12/23/19 05:40 RDW 13.3 % (11.6-15.6) 12/23/19 05:40 Plt Count 243 K/MM3 (134-434) 12/23/19 05:40 MPV 8.0 fl (7.5-11.1) 12/23/19 05:40 Absolute Neuts (auto) 2.4 K/mm3 (1.5-8.0) 12/20/19 06:09 Neutrophils % 42.7 % (42.8-82.8) L D 12/20/19 06:09 Lymphocytes % 46.8 % (8-40) H D 12/20/19 06:09 Monocytes % 6.8 % (3.8-10.2) 12/20/19 06:09 Eosinophils % 3.4 % (0-4.5) 12/20/19 06:09 Basophils % 0.3 % (0-2.0) 12/20/19 06:09 Nucleated RBC % 0 % (0-0) 12/20/19 06:09 ESR 2 mm/hr (0-20) 12/20/19 13:00 PT with INR 12.90 SEC (9.7-13.0) 12/20/19 06:09 INR 1.10 (0.83-1.09) H 12/20/19 06:09 PTT (Actin FS) 29.1 SECONDS (25.2-36.5) 12/23/19 05:40 Fibrinogen 284.0 mg/dL (238-498) 12/19/19 20:50 D-Dimer 474 ng/ml (0-500) 12/19/19 19:50 Sodium 143 mmol/L (136-145) 12/22/19 05:50 Potassium 3.9 mmol/L (3.5-5.1) 12/22/19 05:50 Chloride 112 mmol/L (98-107) H 12/22/19 05:50 Carbon Dioxide 25 mmol/L (21-32) 12/22/19 05:50 Anion Gap 6 MMOL/L (8-16) L 12/22/19 05:50 BUN 8.8 mg/dL (7-18) 12/22/19 05:50 Creatinine 0.6 mg/dL (0.55-1.3) 12/22/19 05:50 Est GFR (CKD-EPI)AfAm 134.01 12/22/19 05:50 Est GFR (CKD-EPI)NonAf 115.63 12/22/19 05:50 POC Glucometer 144 UNITS (80-120) 12/22/19 20:59 Random Glucose 96 mg/dL (74-106) 12/22/19 05:50 Hemoglobin A1c % 5.0 % (4.2-6.3) 12/20/19 06:09 Calcium 8.7 mg/dL (8.5-10.1) 12/22/19 05:50 Magnesium 2.0 mg/dL (1.8-2.4) 12/22/19 05:50 Total Bilirubin 0.2 mg/dL (0.2-1) 12/20/19 06:09 AST 14 U/L (15-37) L 12/20/19 06:09 ALT 38 U/L (13-61) 12/20/19 06:09 Alkaline Phosphatase 67 U/L (45-117) 12/20/19 06:09 Creatine Kinase 88 U/L (26-192) 12/19/19 15:20 Troponin I < 0.02 ng/ml (0.00-0.05) 12/19/19 20:50 C-Reactive Protein < 0.3 MG/DL (0.00-0.3) 12/21/19 06:35 Total Protein 6.2 g/dl (6.4-8.2) L 12/20/19 06:09 Albumin 3.3 g/dl (3.4-5.0) L 12/20/19 06:09 Triglycerides 227 mg/dL (0-150) H 12/20/19 06:09 Cholesterol 169 mg/dL (50-200) 12/20/19 06:09 Total LDL Cholesterol 81 mg/dL (5-100) 12/20/19 06:09 HDL Cholesterol 68 mg/dL (40-60) H 12/20/19 06:09 TSH 0.45 uIU/ml (0.358-3.74) 12/23/19 05:40 Free T4 0.66 ng/dl (0.76-1.46) L 12/23/19 05:40 Free T3 2.3 pg/ml (2.0-4.4) 12/20/19 14:58 Total T3 108.00 ng/dl (71-180) 12/21/19 06:35 Resin T3 Uptake 30.2 % (30-39) 12/20/19 06:09 Urine Color Dk yellow 12/19/19 15:20 Urine Appearance Clear 12/19/19 15:20 Urine pH >= 9.0 (5.0-8.0) H 12/19/19 15:20 Ur Specific [place] 1.024 (1.010-1.035) 12/19/19 15:20 Urine Protein 1+ (NEGATIVE) H 12/19/19 15:20 Urine Glucose (UA) Negative (NEGATIVE) 12/19/19 15:20 Urine Ketones Negative (NEGATIVE) 12/19/19 15:20 Urine Blood Negative (NEGATIVE) 12/19/19 15:20 Urine Nitrite Negative (NEGATIVE) 12/19/19 15:20 Urine Bilirubin Negative (NEGATIVE) 12/19/19 15:20 Urine Urobilinogen 0.2 mg/dL (0.2-1.0) 12/19/19 15:20 Ur Leukocyte Esterase Negative (NEGATIVE) 12/19/19 15:20 Urine WBC (Auto) 69.6 /uL (0-25.8) 12/19/19 15:20 Urine RBC (Auto) 42 /uL (0-23.9) 12/19/19 15:20 Urine Casts (Auto) 1 /uL (0-3.1) 12/19/19 15:20 U Epithel Cells (Auto) 30 /uL (0-25.1) 12/19/19 15:20 Urine Bacteria (Auto) 103 /uL (0-1359) 12/19/19 15:20 Urine HCG, Qual Negative 12/19/19 15:20 Opiates Screen Negative ng/ml (OKNIQV=146) 12/19/19 22:10 Methadone Screen Negative ng/ml (XLYYSV=228) 12/19/19 22:10 Barbiturate Screen Negative ng/ml (IZTYGG=662) 12/19/19 22:10 Phencyclidine Screen Negative ng/ml (CUTOFF=25) 12/19/19 22:10 Ur Amphetamines Screen Negative ng/ml (YOFJAE=067) 12/19/19 22:10 MDMA (Ecstasy) Screen Negative ng/ml (EEXOXU=868) 12/19/19 22:10 Benzodiazepines Screen Negative ng/ml (GNGMBD=718) 12/19/19 22:10 Cocaine Screen Negative ng/ml (AKLTSQ=352) 12/19/19 22:10 U Marijuana (THC) Screen Negative ng/ml (CUTOFF=50) 12/19/19 22:10 COVID-19 (DORA) Not detected (Not Detected) 12/19/19 17:00 Active Medications Generic Name Dose Route Start Last Admin Trade Name Freq PRN Reason Stop Dose Admin Acetaminophen 650 mg 12/21/19 16:05 Tylenol - PO Q6H PRN PAIN LEVEL 6-10 Carbamazepine 200 mg 12/23/19 10:00 12/23/19 10:01 Tegretol - PO 200 mg DAILY NEYDA Administration Hydroxychloroquine Sulfate 200 mg 12/23/19 10:00 12/23/19 10:01 Plaquenil - PO 200 mg DAILY NEYDA Administration Prednisone 5 mg/ Prednisone 2 7 mg 12/23/19 10:12/23/19 10:03 mg PO 7 mg DAILY NEYDA Administration CT chest 12/18 No aortic aneurysm is noted. Evaluation for possible aortic dissection cannot be performed on this exam due to lack of intravascular contrast. Additional evaluation utilizing noncontrast MRI/MRA may be considered versus CT angiography with utilization of a premedication protocol. The main pulmonary artery is somewhat dilated with a 3.3 cm diameter suggestive of increased pulmonary arterial pressure. Follow-up evaluation is suggested. No infiltrate or pleural effusion is seen. There appears to be diffuse enlargement of the partially imaged thyroid gland. Clinical/laboratory correlation is suggested as well as correlation with sonography. Duplex lower extremities 12/18 There is no sonographic evidence of deep vein thrombosis. If there is clinical concern for possible isolated calf DVT or if there is a clinical diagnosis of uncomplicated superficial thrombophlebitis, then correlation with close follow up sonography is sug gested. Echocardiogram 12/19 LV size, thickness and function are normal, EF 72%. Grade I diastolic dysfunction (abnormal relaxation pattern). RV is normal in size and function. Normal L and R atrial size and function. MV normal, AV and PV normal in structure and function V/Q scan 12/20 There is normal ventilation and perfusion to the right and left lungs with no evidence of mismatched perfusion defects. CXR 12/20 2 views of the chest were submitted. There are clear well aerated lungs, normal mediastinum and sharp angles. The soft tissues are intact. Acute process is not seen. There is a new ringlike density projects over the peripheral left chest which was not present on 12/19/2019 and most likely is artifactual. The bones are intact. Correlation recommended. Chest MRI w/o contrast 12/22 No MRI evidence of thoracic aortic aneurysm. No dissection seen in the mid to distal arch and descending thoracic aorta. Evaluation of the ascending aorta and proximal aortic arch is partially limited due to pulsation artifacts however no gross dissection seen. Trace fluid around the proximal aortic arch likely fluid in the high pericardial recess. ASSESSMENT/PLAN: 39 yo F with PMH HTN, SLE, DVT (10 years ago, was treated with coumadin), gastric bypass in 2019, seizure disorder, obesity presented to ED with SOB and L sided chest pain 4 days ago. Pt is currently admitted for suspicion of pulmonary embolism. Shortness of breath, etiology to be determined. Pleuritis secondary to viral infection vs. costochondritis vs. Unlikely PE vs. Pericarditis vs. esophageal spasm -Given history of SLE, DVT and obesity, pt has risks for PE. Negative V/Q scan and echo for R heart strain makes PE unlikely -CTA not done due to allergies to contrast -CT chest as above, evidence of dilated main pulmonary artery, suggestive of INC pulmonary arterial pressure. -Echocardiogram and duplex lower extremities as above -EKG without significant change from previous - V/Q scan normal - ESR and CRP normal -Supplemental O2 to keep SpO2 >90% -Pulmonary consulted. -cardiology consulted. -MRI chest w/o contrast as above. -f/u Chest MRI with contrast r/o aortic dissection. Will proceed with stress echo after aortic dissection has been ruled out. Will be made NPO prior to stress test. -May need f/u esophageal manometry to r/o esophageal dysmotility Thyromegaly -As per CT above -Repeated TFTs. Normal TSH and low free T4 -Will need outpatient thyroid US. -Will need f/u with race starter History of DVT -Will require outpatient heme/onc for further workup -duplex lower extremities as above Seizure disorder, chronic -c/w home dose carbamazepine 200mg qD SLE, chronic -c/w plaquenil 200mg qD, prednisone 7mg Ppx -DVT: lovenox FEN -no standing fluids -replete lytes as needed -NPO after midnight for stress test COVID negative 12/18 Dispo: continue to monitor on tele. MRI chest with contrast tomorrow, after r/o aortic dissection, stress echo. Visit type - Emergency Visit Emergency Visit: Yes ED Registration Date: 12/19/19 Care time: The patient presented to the Emergency Department on the above date and was hospitalized for further evaluation of their emergent condition. - New Patient This patient is new to me today: No - Critical Care Critical Care patient: No ATTENDING PHYSICIAN STATEMENT I saw and evaluated the patient. I reviewed the resident's note and discussed the case with the resident. I agree with the resident's findings and plan as documented. SUBJECTIVE: OBJECTIVE: ASSESSMENT AND PLAN:
--- NOTE | 2019-12-23 17:45 | PN ---
Teaching Attending Note Name of Resident: Negro Thorne ATTENDING PHYSICIAN STATEMENT I saw and evaluated the patient. I reviewed the resident's note and discussed the case with the resident. I agree with the resident's findings and plan as documented. SUBJECTIVE: seen in am around 10 am no fever or chills. cont to have pain in mid sternal area. constant fo the past few days . worse when she laughs and when she takes deep breath . OBJECTIVE: NAD , awake, alert, cooeprative CV: RRR Lungs: CTAB Ext : No edema or erythema on upper or lower extremities. radial pulse 2+ b/l. ASSESSMENT AND PLAN: 39 y/o lady with h/o SLE, DVt , Gastric bypass, seizure, asthma, fibromyalgia, and HTn who presented with cp . 1- CP: unclear etiology at this time. unlikely cardiac. CT of chest reviewed. echo did not show increased R sided pressure. EKG reviewed. - MRI of chest without luis was done which is not diagnostic - MRA with luis to be performed. to r/o aortic dissection . team d.w IR attending - stress test to be done after if negative - if above w/u negative, might need GI f.u for manometry to r/o esophageal spasm 2- Abnormal TFTs. initial pattern suggest secondary hypothyroidism, but repeat this am , indicate abnormal tests as a results of acute illness/lab variation . CT with enlarged thyroid - Thyroid US as out pt - repeat TFTS as out pt - f/u with endocrine 3- h/o DVT: - she needs to follow up with heme as out pt for further w/u . 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 - refer to heme dispo : HLOC SLE, DVT 10 years ago (was on Coumadin), gastric bypass 2019, seizure disorder, asthma, HTN, obesity, fibromyalgia, presents with sudden onset SOB and L sided CP:
[2019-12-23] MEDS: HEPARIN NA (PORCINE) 5,000 UNITS/ML 1ML VIAL SQ SCH (21:08)
[2019-12-24] MEDS: HEPARIN NA (PORCINE) 5,000 UNITS/ML 1ML VIAL SQ SCH ×3 (06:12→21:34)
[2019-12-24] MEDS: HYDROXYCHLOROQUINE SO4 200 MG TABLET (FP) PO SCH (09:59)
[2019-12-24] MEDS: carBAMazepine 200 MG TABLET PO SCH (10:00)
--- NOTE | 2019-12-24 14:56 | PN ---
Teaching Attending Note Name of Resident: Joann Stanford ATTENDING PHYSICIAN STATEMENT I saw and evaluated the patient. I reviewed the resident's note and discussed the case with the resident. I agree with the resident's findings and plan as documented. SUBJECTIVE: light headed with standing . cont to have cp . no SOB OBJECTIVE: NAD , awake, alert, flat affect CV: RRR Lungs: CTAB Ext : No edema or erythema on upper or lower extremities. ASSESSMENT AND PLAN: 39 y/o lady with h/o SLE, DVt , Gastric bypass, seizure, asthma, fibromyalgia, and HTN who presented with cp . 1- CP: unclear etiology at this time. MRi with luis with no dissection possible fluid in pericardial recess on MRI, echo earlier this admission with no pericardial effusion . Not sure of significance. will d/w card stress test pending check orthostatic VS 2- Abnormal TFTs. need reepat as out pt and endo f/u 3- h/o DVT: - she needs to follow up with heme as out pt for further w/u . dispo : HLOC
--- NOTE | 2019-12-24 16:10 | PN ---
Progress Note, Physician History of Present Illness: Ms. Matta is a 39 y/o black female with a PMH of SLE and RA (on Paquenil and Prednisone), HTN, seizures, DVT 10 years ago, morbid obesity (s/p gastric bypass surgery 2019; weighed nearly 300 lbs at the time); anxiety; elevated triglycerides, ?hypothyroidism, now presenting to the ED because of 4 days of chest pain. The pain started abruptly; denies any inciting incident. It is constant, sharp, left sided, and occasionally radiates to her back. The pain is worse with deep breaths. She is also having increased SOB, worse with exertion and is also complaining of lightheadedness. She denies any LOC. She has experienced similar pain before (beginning about a year ago), but never this b ad. She denies any associated N/V, abdominal pain, headache, blurry vision, or pain in her calves. Admits to DVT over 10 years ago, and she was anticoagulated with Coumadin. No longer on anticoagulants. Patient reports IV contrast allergy; it makes her SOB. Pt says she walks regularly, including up and down stairs, but has been increasingly dyspneic for the past week. She denies recent travel, sick contacts, hx of malignancy, cough, or hemoptysis. - Current Medication List Current Medications: Active Medications Acetaminophen (Tylenol -) 650 mg PO Q6H PRN PRN Reason: PAIN LEVEL 6-10 Carbamazepine (Tegretol -) 200 mg PO DAILY [facility] Last Admin: 12/24/19 10:00 Dose: 200 mg Documented by: Heparin Sodium (Porcine) (Heparin -) 5,000 unit SQ TID [facility] Last Admin: 12/24/19 14:15 Dose: 5,000 unit Documented by: Hydroxychloroquine Sulfate (Plaquenil -) 200 mg PO DAILY [facility] Last Admin: 12/24/19 09:59 Dose: 200 mg Documented by: Prednisone 5 mg/ Prednisone 2 (mg) 7 mg PO DAILY [facility] Last Admin: 12/24/19 09:59 Dose: 7 mg Documented by: - Objective Vital Signs: Vital Signs Temperature 98 F 12/24/19 14:00 Pulse Rate 106 H 12/24/19 14:00 Respiratory Rate 20 12/24/19 14:00 Blood Pressure 138/70 12/24/19 14:00 O2 Sat by Pulse Oximetry (%) 98 12/24/19 10:00 Eyes: Yes: WNL, Conjunctiva Clear, EOM Intact HENT: Yes: WNL, Atraumatic, Normocephalic Neck: Yes: WNL, Supple, Trachea Midline Cardiovascular: Yes: WNL, Regular Rate and Rhythm Respiratory: Yes: WNL, Regular, CTA Bilaterally Gastrointestinal: Yes: WNL, Normal Bowel Sounds Genitourinary: Yes: WNL Musculoskeletal: Yes: WNL Extremities: Yes: WNL Edema: No Integumentary: Yes: WNL Neurological: Yes: WNL, Alert, Oriented ...Motor Strength: WNL Psychiatric: Yes: WNL Labs: CBC, BMP 12/23/19 05:40 12/22/19 05:50 INR, PTT INR 1.10 (0.83-1.09) H 12/20/19 06:09 Fibrinogen 284.0 mg/dL (238-498) 12/19/19 20:50 Assessment/Plan Atypical chest pain for the past year; elicited by deep breaths. SLE; RA HTN morbid obesity; s/p gastric bypass surgery hypertriglyceridemia seizures ?thyroid dysfunction DVT 2009; not on anticoagulants after a few months of warfarin at that time EKG NSR; septal infarct (noted since at least 2015) ECHO: normal LVEF; abnormal diastolic compliance; no significant valvular diseas e. TNI < 0.02 x 2; CK WNL. 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
--- NOTE | 2019-12-24 17:03 | PN ---
Physical Exam: SUBJECTIVE: Patient seen and examined. No acute events overnight. No acute tele events overnight. Pt stated she feels the same. Had MRI done with and without contrast. OBJECTIVE: Vital Signs Period Temp Pulse Resp BP Sys/Nichols Pulse Ox Last 24 Hr 97.8 F-98 F 81-110 17-20 102-138/59-91 97-100 GENERAL: Awake, alert. Not in acute distress. HEENT: NCAT, EOMI, PERRL. Moist mucus membranes. CARDIAC: RRR, S1, S2 present. No murmurs. No pericardial rub. PULMONARY: CTA b/l. No wheezes or accessory muscle use. ABDOMEN: Obese, nontender to palpation, nondistended. Normoactive bowel sounds EXTREMITIES: Warm, well-perfused. No edema. 2+ pulses b/l. SKIN: Tattoos on skin. Warm, dry. Laboratory Last Values WBC 6.6 K/mm3 (4.0-10.0) 12/23/19 05:40 RBC 3.79 M/mm3 (3.60-5.2) 12/23/19 05:40 Hgb 12.2 GM/dL (10.7-15.3) 12/23/19 05:40 Hct 34.7 % (32.4-45.2) 12/23/19 05:40 MCV 91.6 fl (80-96) 12/23/19 05:40 MCH 32.1 pg (25.7-33.7) 12/23/19 05:40 MCHC 35.0 g/dl (32.0-36.0) 12/23/19 05:40 RDW 13.3 % (11.6-15.6) 12/23/19 05:40 Plt Count 243 K/MM3 (134-434) 12/23/19 05:40 MPV 8.0 fl (7.5-11.1) 12/23/19 05:40 Absolute Neuts (auto) 2.4 K/mm3 (1.5-8.0) 12/20/19 06:09 Neutrophils % 42.7 % (42.8-82.8) L D 12/20/19 06:09 Lymphocytes % 46.8 % (8-40) H D 12/20/19 06:09 Monocytes % 6.8 % (3.8-10.2) 12/20/19 06:09 Eosinophils % 3.4 % (0-4.5) 12/20/19 06:09 Basophils % 0.3 % (0-2.0) 12/20/19 06:09 Nucleated RBC % 0 % (0-0) 12/20/19 06:09 ESR 2 mm/hr (0-20) 12/20/19 13:00 PT with INR 12.90 SEC (9.7-13.0) 12/20/19 06:09 INR 1.10 (0.83-1.09) H 12/20/19 06:09 PTT (Actin FS) 29.1 SECONDS (25.2-36.5) 12/23/19 05:40 Fibrinogen 284.0 mg/dL (238-498) 12/19/19 20:50 D-Dimer 474 ng/ml (0-500) 12/19/19 19:50 Sodium 143 mmol/L (136-145) 12/22/19 05:50 Potassium 3.9 mmol/L (3.5-5.1) 12/22/19 05:50 Chloride 112 mmol/L (98-107) H 12/22/19 05:50 Carbon Dioxide 25 mmol/L (21-32) 12/22/19 05:50 Anion Gap 6 MMOL/L (8-16) L 12/22/19 05:50 BUN 8.8 mg/dL (7-18) 12/22/19 05:50 Creatinine 0.6 mg/dL (0.55-1.3) 12/22/19 05:50 Est GFR (CKD-EPI)AfAm 134.01 12/22/19 05:50 Est GFR (CKD-EPI)NonAf 115.63 12/22/19 05:50 POC Glucometer 144 UNITS (80-120) 12/22/19 20:59 Random Glucose 96 mg/dL (74-106) 12/22/19 05:50 Hemoglobin A1c % 5.0 % (4.2-6.3) 12/20/19 06:09 Calcium 8.7 mg/dL (8.5-10.1) 12/22/19 05:50 Magnesium 2.0 mg/dL (1.8-2.4) 12/22/19 05:50 Total Bilirubin 0.2 mg/dL (0.2-1) 12/20/19 06:09 AST 14 U/L (15-37) L 12/20/19 06:09 ALT 38 U/L (13-61) 12/20/19 06:09 Alkaline Phosphatase 67 U/L (45-117) 12/20/19 06:09 Creatine Kinase 88 U/L (26-192) 12/19/19 15:20 Troponin I < 0.02 ng/ml (0.00-0.05) 12/19/19 20:50 C-Reactive Protein < 0.3 MG/DL (0.00-0.3) 12/21/19 06:35 Total Protein 6.2 g/dl (6.4-8.2) L 12/20/19 06:09 Albumin 3.3 g/dl (3.4-5.0) L 12/20/19 06:09 Triglycerides 227 mg/dL (0-150) H 12/20/19 06:09 Cholesterol 169 mg/dL (50-200) 12/20/19 06:09 Total LDL Cholesterol 81 mg/dL (5-100) 12/20/19 06:09 HDL Cholesterol 68 mg/dL (40-60) H 12/20/19 06:09 TSH 0.45 uIU/ml (0.358-3.74) 12/23/19 05:40 Free T4 0.66 ng/dl (0.76-1.46) L 12/23/19 05:40 Free T3 2.3 pg/ml (2.0-4.4) 12/20/19 14:58 Total T3 108.00 ng/dl (71-180) 12/21/19 06:35 Resin T3 Uptake 30.2 % (30-39) 12/20/19 06:09 Urine Color Dk yellow 12/19/19 15:20 Urine Appearance Clear 12/19/19 15:20 Urine pH >= 9.0 (5.0-8.0) H 12/19/19 15:20 Ur Specific [place] 1.024 (1.010-1.035) 12/19/19 15:20 Urine Protein 1+ (NEGATIVE) H 12/19/19 15:20 Urine Glucose (UA) Negative (NEGATIVE) 12/19/19 15:20 Urine Ketones Negative (NEGATIVE) 12/19/19 15:20 Urine Blood Negative (NEGATIVE) 12/19/19 15:20 Urine Nitrite Negative (NEGATIVE) 12/19/19 15:20 Urine Bilirubin Negative (NEGATIVE) 12/19/19 15:20 Urine Urobilinogen 0.2 mg/dL (0.2-1.0) 12/19/19 15:20 Ur Leukocyte Esterase Negative (NEGATIVE) 12/19/19 15:20 Urine WBC (Auto) 69.6 /uL (0-25.8) 12/19/19 15:20 Urine RBC (Auto) 42 /uL (0-23.9) 12/19/19 15:20 Urine Casts (Auto) 1 /uL (0-3.1) 12/19/19 15:20 U Epithel Cells (Auto) 30 /uL (0-25.1) 12/19/19 15:20 Urine Bacteria (Auto) 103 /uL (0-1359) 12/19/19 15:20 Urine HCG, Qual Negative 12/19/19 15:20 Opiates Screen Negative ng/ml (LXOWUN=862) 12/19/19 22:10 Methadone Screen Negative ng/ml (BBGYBV=244) 12/19/19 22:10 Barbiturate Screen Negative ng/ml (XTKGQD=472) 12/19/19 22:10 Phencyclidine Screen Negative ng/ml (CUTOFF=25) 12/19/19 22:10 Ur Amphetamines Screen Negative ng/ml (IZNEEX=255) 12/19/19 22:10 MDMA (Ecstasy) Screen Negative ng/ml (IPKAPD=988) 12/19/19 22:10 Benzodiazepines Screen Negative ng/ml (MUBOYG=824) 12/19/19 22:10 Cocaine Screen Negative ng/ml (TZVYRN=861) 12/19/19 22:10 U Marijuana (THC) Screen Negative ng/ml (CUTOFF=50) 12/19/19 22:10 COVID-19 (DORA) Not detected (Not Detected) 12/19/19 17:00 Active Medications Acetaminophen (Tylenol -) 650 mg PO Q6H PRN PRN Reason: PAIN LEVEL 6-10 Carbamazepine (Tegretol -) 200 mg PO DAILY [facility] Last Admin: 12/24/19 10:00 Dose: 200 mg Documented by: Heparin Sodium (Porcine) (Heparin -) 5,000 unit SQ TID [facility] Last Admin: 12/24/19 14:15 Dose: 5,000 unit Documented by: Hydroxychloroquine Sulfate (Plaquenil -) 200 mg PO DAILY [facility] Last Admin: 12/24/19 09:59 Dose: 200 mg Documented by: Prednisone 5 mg/ Prednisone 2 (mg) 7 mg PO DAILY [facility] Last Admin: 12/24/19 09:59 Dose: 7 mg Documented by: Chest MRA aortic arch 12/22 Multiplanar imaging was performed before and following the intravenous administration of paramagnetic contrast. The current exam is correlated with a noncontrast MRI/MRA study performed earlier the same day as well as with a noncontrast chest CT study of 05/19/2019. No aortic aneurysm, intramural hematoma or aortic dissection is noted. The periaortic soft tissue planes appear intact. No mediastinal hematoma is seen. The main pulmonary artery is somewhat dilated as also visualized on recently performed CT with a 3.3 cm diameter. Impression: No aortic dissection is identified. As also noted on recently performed CT the main pulmonary artery appears somewhat dilated (3.3 cm diameter) suggestive of increased pulmonary arterial pressure. Follow-up evaluation is suggested Chest MRI w/o contrast 12/22 No MRI evidence of thoracic aortic aneurysm. No dissection seen in the mid to distal arch and descending thoracic aorta. Evaluation of the ascending aorta and proximal aortic arch is partially limited due to pulsation artifacts however no gross dissection seen. Trace fluid around the proximal aortic arch likely fluid in the high pericardial recess. ASSESSMENT/PLAN: 39 yo F with PMH HTN, SLE, DVT (10 years ago, was treated with coumadin), gastric bypass in 2018, seizure disorder, obesity presented to ED with SOB and L sided chest pain 4 days ago. Pt is currently admitted for suspicion of pulmonary embolism. Shortness of breath, etiology to be determined. Pleuritis secondary to viral infection vs. costochondritis vs. Unlikely PE vs. Pericarditis vs. esophageal spasm -MRI without evidence of aortic dissection. Will proceed with stress echo on Thursday. -May need f/u esophageal manometry to r/o esophageal dysmotility -Orthostatic vitals negative for orthostatic hypotension -Pulmonary and cardiology consulted. Thyromegaly -As per CT above -Repeated TFTs. Normal TSH and low free T4 -Will need outpatient thyroid US. 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 NPO after midnight on Thursday for Thursday stress echo. COVID negative 12/18 Dispo: continue to monitor on tele. Visit type - Emergency Visit Emergency Visit: Yes ED Registration Date: 12/19/19 Care time: The patient presented to the Emergency Department on the above date and was hospitalized for further evaluation of their emergent condition. - New Patient This patient is new to me today: No - Critical Care Critical Care patient: No ATTENDING PHYSICIAN STATEMENT I saw and evaluated the patient. I reviewed the resident's note and discussed the case with the resident. I agree with the resident's findings and plan as documented. SUBJECTIVE: OBJECTIVE: ASSESSMENT AND PLAN:
[2019-12-24] MEDS: ACETAMINOPHEN 325 MG TABLET (FP) PO PRN (21:39)
[2019-12-25] MEDS: HEPARIN NA (PORCINE) 5,000 UNITS/ML 1ML VIAL SQ SCH ×3 (06:23→21:23)
[2019-12-25] MEDS: SUCRALFATE 1 GM TABLET (FP) PO SCH ×5 (09:03→21:24)
[2019-12-25] MEDS: carBAMazepine 200 MG TABLET PO SCH (09:06)
[2019-12-25] MEDS: PANTOPRAZOLE 40 MG TABLET PO SCH (09:06)
[2019-12-25] MEDS: HYDROXYCHLOROQUINE SO4 200 MG TABLET (FP) PO SCH (09:06)
--- NOTE | 2019-12-25 12:24 | PN ---
Progress Note (short form) - Note Progress Note: Subjective: No fever or chills. cont to have CP . light headed with standing . SOB + Objective: Vital Signs: Last Vital Signs Temp Pulse Resp BP Pulse Ox 97.8 F 89 20 117/59 L 98 12/25/19 06:20 12/25/19 06:20 12/25/19 06:20 12/25/19 06:20 12/24/19 21:28 Physical Exam: NAD, awake, alert, flat affect CV: RRR Lungs: CTAB Abd: sfot, NT, ND , NL BS Ext : No edema or erythema on upper or lower extremities. ASSESSMENT AND PLAN: 39 y/o lady with h/o SLE, DVt , Gastric bypass, seizure, asthma, fibromyalgia, and HTN who presented with cp . 1- CP: unclear etiology at this time. unlikley cardiac. - Follow stress test tomorrow - if stress neg, need GI f/u as out pt for mannometry and EGD . r/o esophageal spasm and PUD - start carafate and PPI as on chronic steroids 2- Abnormal TFTs. repeat as out pt 3- H/o DVT: - she needs to follow up with heme as out pt for further w/u . Dispo : HLOC Visit type - Emergency Visit Emergency Visit: Yes ED Registration Date: 12/19/19 Care time: The patient presented to the Emergency Department on the above date and was hospitalized for further evaluation of their emergent condition. - New Patient This patient is new to me today: No - Critical Care Critical Care patient: No
[2019-12-25] MEDS: ACETAMINOPHEN 325 MG TABLET (FP) PO PRN (14:24)
--- NOTE | 2019-12-25 16:17 | PN ---
Progress Note, Physician History of Present Illness: Ms. Matta is a 39 y/o black female with a PMH of SLE and RA (on Paquenil and Prednisone), HTN, seizures, DVT 10 years ago, morbid obesity (s/p gastric bypass surgery 2019; weighed nearly 300 lbs at the time); anxiety; elevated triglycerides, ?hypothyroidism, now presenting to the ED because of 4 days of chest pain. The pain started abruptly; denies any inciting incident. It is constant, sharp, left sided, and occasionally radiates to her back. The pain is worse with deep breaths. She is also having increased SOB, worse with exertion and is also complaining of lightheadedness. She denies any LOC. She has experienced similar pain before (beginning about a year ago), but never this b ad. She denies any associated N/V, abdominal pain, headache, blurry vision, or pain in her calves. Admits to DVT over 10 years ago, and she was anticoagulated with Coumadin. No longer on anticoagulants. Patient reports IV contrast allergy; it makes her SOB. Pt says she walks regularly, including up and down stairs, but has been increasingly dyspneic for the past week. She denies recent travel, sick contacts, hx of malignancy, cough, or hemoptysis. - Current Medication List Current Medications: Active Medications Acetaminophen (Tylenol -) 650 mg PO Q6H PRN PRN Reason: PAIN LEVEL 6-10 Last Admin: 12/25/19 14:24 Dose: 650 mg Documented by: Carbamazepine (Tegretol -) 200 mg PO DAILY [facility] Last Admin: 12/25/19 09:06 Dose: 200 mg Documented by: Heparin Sodium (Porcine) (Heparin -) 5,000 unit SQ TID [facility] Last Admin: 12/25/19 13:05 Dose: 5,000 unit Documented by: Hydroxychloroquine Sulfate (Plaquenil -) 200 mg PO DAILY [facility] Last Admin: 12/25/19 09:06 Dose: 200 mg Documented by: Pantoprazole Sodium (Protonix -) 40 mg PO DAILY [facility] Last Admin: 12/25/19 09:06 Dose: 40 mg Documented by: Prednisone 5 mg/ Prednisone 2 (mg) 7 mg PO DAILY [facility] Last Admin: 12/25/19 09:06 Dose: 7 mg Documented by: Sucralfate (Carafate -) 1 gm PO QID [facility] Last Admin: 12/25/19 13:40 Dose: Not Given Documented by: - Objective Vital Signs: Vital Signs Temperature 98 F 12/25/19 14:00 Pulse Rate 101 H 12/25/19 14:00 Respiratory Rate 20 12/25/19 14:00 Blood Pressure 148/86 12/25/19 14:00 O2 Sat by Pulse Oximetry (%) 98 12/25/19 10:00 Eyes: Yes: WNL, Conjunctiva Clear, EOM Intact HENT: Yes: WNL, Atraumatic, Normocephalic Neck: Yes: WNL, Supple, Trachea Midline Cardiovascular: Yes: WNL, Regular Rate and Rhythm Respiratory: Yes: WNL, Regular, CTA Bilaterally Gastrointestinal: Yes: WNL, Normal Bowel Sounds Genitourinary: Yes: WNL Musculoskeletal: Yes: WNL Extremities: Yes: WNL Edema: No Integumentary: Yes: WNL Neurological: Yes: WNL, Alert, Oriented ...Motor Strength: WNL Psychiatric: Yes: WNL Labs: CBC, BMP 12/23/19 05:40 12/22/19 05:50 INR, PTT INR 1.10 (0.83-1.09) H 12/20/19 06:09 Fibrinogen 284.0 mg/dL (238-498) 12/19/19 20:50 Assessment/Plan Atypical chest pain for the past year; elicited by deep breaths. SLE; RA HTN morbid obesity; s/p gastric bypass surgery hypertriglyceridemia seizures ?thyroid dysfunction DVT 2009; not on anticoagulants after a few months of warfarin at that time EKG NSR; septal infarct (noted since at least 2015) ECHO: normal LVEF; abnormal diastolic compliance; no significant valvular disease. TNI < 0.02 x 2; CK WNL. 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
[2019-12-26] MEDS: HEPARIN NA (PORCINE) 5,000 UNITS/ML 1ML VIAL SQ SCH ×2 (06:12→15:06)
[2019-12-26] MEDS ORDERED: PT OWN MED DRAWER 7, Y5N ONE (09:30)
[2019-12-26] MEDS: SUCRALFATE 1 GM TABLET (FP) PO SCH ×2 (09:48→15:06)
[2019-12-26] MEDS: HYDROXYCHLOROQUINE SO4 200 MG TABLET (FP) PO SCH (09:49)
[2019-12-26] MEDS: PANTOPRAZOLE 40 MG TABLET PO SCH (10:02)
[2019-12-26] MEDS: carBAMazepine 200 MG TABLET PO SCH (10:02)
--- NOTE | 2019-12-26 15:20 | PN ---
Progress Note, Physician History of Present Illness: Ms. Matta is a 39 y/o black female with a PMH of SLE and RA (on Paquenil and Prednisone), HTN, seizures, DVT 10 years ago, morbid obesity (s/p gastric bypass surgery 2019; weighed nearly 300 lbs at the time); anxiety; elevated triglycerides, ?hypothyroidism, now presenting to the ED because of 4 days of chest pain. The pain started abruptly; denies any inciting incident. It is constant, sharp, left sided, and occasionally radiates to her back. The pain is worse with deep breaths. She is also having increased SOB, worse with exertion and is also complaining of lightheadedness. She denies any LOC. She has experienced similar pain before (beginning about a year ago), but never this b ad. She denies any associated N/V, abdominal pain, headache, blurry vision, or pain in her calves. Admits to DVT over 10 years ago, and she was anticoagulated with Coumadin. No longer on anticoagulants. Patient reports IV contrast allergy; it makes her SOB. Pt says she walks regularly, including up and down stairs, but has been increasingly dyspneic for the past week. She denies recent travel, sick contacts, hx of malignancy, cough, or hemoptysis. - Current Medication List Current Medications: Active Medications Acetaminophen (Tylenol -) 650 mg PO Q6H PRN PRN Reason: PAIN LEVEL 6-10 Last Admin: 12/25/19 14:24 Dose: 650 mg Documented by: Carbamazepine (Tegretol -) 200 mg PO DAILY [facility] Last Admin: 12/26/19 10:02 Dose: 200 mg Documented by: Heparin Sodium (Porcine) (Heparin -) 5,000 unit SQ TID [facility] Last Admin: 12/26/19 15:06 Dose: 5,000 unit Documented by: Hydroxychloroquine Sulfate (Plaquenil -) 200 mg PO DAILY [facility] Last Admin: 12/26/19 09:49 Dose: 200 mg Documented by: Pantoprazole Sodium (Protonix -) 40 mg PO DAILY [facility] Last Admin: 12/26/19 10:02 Dose: Not Given Documented by: Prednisone 5 mg/ Prednisone 2 (mg) 7 mg PO DAILY [facility] Last Admin: 12/26/19 09:49 Dose: 7 mg Documented by: Sucralfate (Carafate -) 1 gm PO QID [facility] Last Admin: 12/26/19 15:06 Dose: Not Given Documented by: - Objective Vital Signs: Vital Signs Temperature 97.7 F 12/26/19 09:45 Pulse Rate 96 H 12/26/19 09:45 Respiratory Rate 18 12/26/19 09:45 Blood Pressure 108/64 12/26/19 09:45 O2 Sat by Pulse Oximetry (%) 100 12/26/19 09:45 Eyes: Yes: WNL, Conjunctiva Clear, EOM Intact HENT: Yes: WNL, Atraumatic, Normocephalic Neck: Yes: WNL, Supple, Trachea Midline Cardiovascular: Yes: WNL, Regular Rate and Rhythm Respiratory: Yes: WNL, Regular, CTA Bilaterally Gastrointestinal: Yes: WNL, Normal Bowel Sounds Genitourinary: Yes: WNL Musculoskeletal: Yes: WNL Extremities: Yes: WNL Edema: No Integumentary: Yes: WNL Neurological: Yes: WNL, Alert, Oriented ...Motor Strength: WNL Psychiatric: Yes: WNL Labs: CBC, BMP 12/23/19 05:40 12/22/19 05:50 INR, PTT INR 1.10 (0.83-1.09) H 12/20/19 06:09 Fibrinogen 284.0 mg/dL (238-498) 12/19/19 20:50 Assessment/Plan Atypical chest pain for the past year; elicited by deep breaths. SLE; RA HTN morbid obesity; s/p gastric bypass surgery hypertriglyceridemia seizures ?thyroid dysfunction DVT 2009; not on anticoagulants after a few months of warfarin at that time EKG NSR; septal infarct (noted since at least 2015) ECHO: normal LVEF; abnormal diastolic compliance; no significant valvular disease. TNI < 0.02 x 2; CK WNL. 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 If negativce patient may be discharged home.
--- NOTE | 2019-12-26 15:43 | ECHO ---
Name: LINDSEY LUNA Exam:Exerise Stress Echocardiogram Study Date: 12/26/2019 01:35 PM Age: 39 yrs Reason For Study: SOB Height: 64 in Weight: 220 lb BSA: 2.0 m2 I WMSI = 1.00 % Normal = 100 IV WMSI = 1.00 % Normal = 100 Segments Size X - Cannot 2 - 1-2 small Interpret 1 - Normal Hypokinetic 3 - Akinetic 4 - Dyskinetic3-5 moderate 5 - Aneurysmal 6-14 large 15-16 diffuse Procedure Details: Exercise Stress Echocardiogram with 2D imaging. Stress Comments Resting blood pressure was within normal limits. Normal resting electrocardiogram. A treadmill exercise test according to Gabriel protocol was performed. Maximum Heart Rate achieved was 90-95% of maximum age-predicted heart rate. There was no new ST segment depression. Total Stress Time was 10-11 minutes. Left Ventricle The left ventricle is normal in size. There is normal left ventricular wall thickness. The left ventricle is normal in structure and function. The left ventricular ejection fraction is normal. Exercise Echocardiogram Negative exercise stress echocardiogram, adequate by heart rate criteria, without symptoms, diagnosti c EKG changes or echocardiographic evidence of ischemia. Interpretation Summary Negative exercise stress echocardiogram, adequate by heart rate criteria, without symptoms, diagnosti c EKG changes or echocardiographic evidence of ischemia. Patient exercised 10 min 14 sec into stage 4 Gabriel protocol and achieved 93% of age predicted maximal target HR. 1. Normal augmentation of all myocardial segments. There is no clinical, electrocardiographic or echocardiographic evidence of exercise induced myocardial ischemia 2. Patient remained asymptomatic Reading Physician: Hernandez Ojeda MD 12/26/2019 03:42 PM
--- NOTE | 2019-12-26 15:59 | PN ---
Physical Exam: SUBJECTIVE: Patient seen and examined OBJECTIVE: Vital Signs Period Temp Pulse Resp BP Sys/Nichols Pulse Ox Last 24 Hr 97.7 F-98.8 F 82-102 18-20 108-142/64-87 98-100 GENERAL: The patient is awake, alert, and fully oriented, in no acute distress. HEAD: Normal with no signs of trauma. EYES: PERRL, extraocular movements intact, sclera anicteric, conjunctiva clear. No ptosis. ENT: Ears normal, nares patent, oropharynx clear without exudates, moist mucous membranes. NECK: Trachea midline, full range of motion, supple. LUNGS: Breath sounds equal, clear to auscultation bilaterally, no wheezes, no crackles, no accessory muscle use. HEART: Regular rate and rhythm, S1, S2 without murmur, rub or gallop. ABDOMEN: Soft, nontender, nondistended, normoactive bowel sounds, no guarding, no rebound, no hepatosplenomegaly, no masses. EXTREMITIES: 2+ pulses, warm, well-perfused, no edema. NEUROLOGICAL: Cranial nerves II through XII grossly intact. Normal speech, gait not observed. PSYCH: Normal mood, normal affect. SKIN: Warm, dry, normal turgor, no rashes or lesions noted Active Medications Generic Name Dose Route Start Last Admin Trade Name Freq PRN Reason Stop Dose Admin Acetaminophen 650 mg 12/21/19 16:05 12/25/19 14:24 Tylenol - PO 650 mg Q6H PRN Administration PAIN LEVEL 6-10 Carbamazepine 200 mg 12/23/19 10:00 12/26/19 10:02 Tegretol - PO 200 mg DAILY NEYDA Administration Heparin Sodium (Porcine) 5,000 unit 12/23/19 22:00 12/26/19 15:06 Heparin - SQ 5,000 unit TID NEYDA Administration Hydroxychloroquine Sulfate 200 mg 12/23/19 10:00 12/26/19 09:49 Plaquenil - PO 200 mg DAILY NEYDA Administration Pantoprazole Sodium 40 mg 12/25/19 10:12/26/19 10:02 Protonix - PO Not Given DAILY NEYDA Prednisone 5 mg/ Prednisone 2 7 mg 12/23/19 10:00 12/26/19 09:49 mg PO 7 mg DAILY NEYDA Administration Sucralfate 1 gm 12/25/19 10:00 12/26/19 15:06 Carafate - PO Not Given QID NEYDA ASSESSMENT/PLAN: ATTENDING PHYSICIAN STATEMENT I saw and evaluated the patient. I reviewed the resident's note and discussed the case with the resident. I agree with the resident's findings and plan as documented. SUBJECTIVE: OBJECTIVE: ASSESSMENT AND PLAN:
[2019-12-26 16:14] VITALS: BP 113/63; PULSE 77; TEMP 98.2
--- NOTE | 2019-12-26 16:39 | PN ---
Teaching Attending Note Name of Resident: Kenya Griffith ATTENDING PHYSICIAN STATEMENT I saw and evaluated the patient. I reviewed the resident's note and discussed the case with the resident. I agree with the resident's findings and plan as documented. SUBJECTIVE: no fever or chills. contt o have cp which is not changed since being in hospital OBJECTIVE: NAD, awake, alert, flat affect CV: RRR Lungs: CTAB Ext : No edema or erythema on upper or lower extremities. ASSESSMENT AND PLAN: 39 y/o lady with h/o SLE, DVt , Gastric bypass, seizure, asthma, fibromyalgia, and HTN who presented with cp . 1- CP: unclear etiology at this time. . - stress test with n o signs of ischemia - need GI f/u as out pt for mannometry and EGD . r/o esophageal spasm and PUD - she declined carafate and PPI in house. will send her on a trial of PPI 2- Abnormal TFTs. repeat as out pt , need US for enlarged thyroid on CT 3- H/o DVT: - she needs to follow up with heme as out pt for further w/u . DC home today
--- NOTE | 2019-12-26 18:23 | DS ---
Physical Exam: SUBJECTIVE: Patient seen and examined. No acute events noted. OBJECTIVE: Vital Signs Period Temp Pulse Resp BP Sys/Nichols Pulse Ox Last 24 Hr 97.7 F-98.8 F 77-102 18-20 108-136/63-71 98-100 PHYSICAL EXAM GENERAL: The patient is awake, alert, and fully oriented, in no acute distress. LUNGS: Breath sounds equal, clear to auscultation bilaterally. HEART: Regular rate and rhythm, S1, S2 without murmur, rub or gallop. ABDOMEN: Soft, nontender, nondistended. EXTREMITIES: 2+ pulses, warm, well-perfused, no edema. NEUROLOGICAL: Cranial nerves II through XII grossly intact. Normal speech, gait not observed. PSYCH: Normal mood, normal affect. HOSPITAL COURSE: Date of Admission:12/19/19 39 y/o lady with h/o SLE, DVt , Gastric bypass, seizure, asthma, fibromyalgia, and HTN who was admitted for having atypical cp. The suspicion for PE or dissec tion was moderately high but unfortunately we were unable to do CTA given iodine allergy subsequently pt underwent dry CT chest and stress test. On CT chest, it showed a 3.3 cm dilated pumonary artery suggesting pulm htn and aortic dissection could not be ruled out without contrast so it was recommended to undergo MRI/MRA which was ordered given pt still having cp but it was negative. Thus, cp was of unclear etiology. Pt was given GI f/u as out pt for manometry and EGD to r/o esophageal spasm and PUD. She declined carafate and PPI in house. We will send her on a trial of PPI. Furthermore, she had abnormal TFTs so recommending she repeat as out pt and do an US for enlarged thyroid shown on CT chest here. For her h/o DVT she will need to follow up with heme as out pt for further w/u. Pt Date of Discharge: 12/26/19 Minutes to complete discharge: 35 Discharge Summary Problems reviewed: Yes Reason For Visit: SHORTNESS OF BREATH; CHEST PAIN Current Active Problems Chest pain (Acute) HTN (hypertension) (Chronic) SLE (systemic lupus erythematosus) (Chronic) Shortness of breath (Chronic) Condition: Stable - Instructions Diet, Activity, Other Instructions: Your visit: You came to the hospital due to shortness of breath and pain when you take a deep breath. You were admitted to the hospital to evaluate your symptoms. You had imaging of your chest, heart, and legs. You did a test called a, "V/Q scan" to assess for any evidence of clots in your chest. Your V/Q scan results were normal. . Your heart showed some evidence of dysfunction in its ability to relax. There were no concerning findings of your legs. Laboratory testing showed no evidence of damage to your heart nor signs of inflammation. While here, you were seen by a assessment specialist and a lung specialist. You had a stress test of your heart which was found to be normal indicating the chest pain is not related to your heart. You are stable and may return home. Additional imaging findings: During imaging of your chest, there was an incidental finding of an enlarged thyroid. Please follow up with your primary care provider for further care of this finding. ( you need ulltra sound ) and you need repeat thyroid function levels Medication: Please continue to take your home medications as prescribed: -Amitriptyline HCl (Elavil) 150mg by mouth at bedtime for nerve pain. -Carbamazepine 200mg by mouth daily and Topiramate (Topamax) 50mg by mouth twice a day for your seizure disorder. -Hydroxychloroquine Sulfate (Plaquenil) 200mg by mouth and Prednisone 7mg by mouth daily for your Lupus. - You may take acetaminophen 650mg every 6 hours as needed for your discomfort. Please START taking protonix 20 mg by mouth once daily for prophylaxis of ulcers while on the steroids. Follow up: -Please make and appointment with your primary care provider, Dr. Angela, in 2 weeks. You may discuss your hospitalization. You will need to follow up with a thyroid ultrasound with your doctor as well. -Please make and appointment with your equipment validation engineer in 1 week. If you do not have one, a referral has been provided to see Dr. Triana for management and medication optimization for your Lupus. -Please make an appointment with your inventory administrator, Dr. Velazquez, in 1 week. You may discuss findings of your heart during this visit. -Please make an appointment with your director of orthopedics, Dr. Enrique, in 1 week. You can schedule for pulmonary function test and sleep study. - please make an appointment with Dr. Valdez form endocrinology, you need repeat of your thyroid tests to address the abnormal levels seen in this visit -Please make an appointment to see a jailer chief, Dr. Barillas. You may need further investigation regarding your history of forming clots in your legs in setting of lupus - please see dr. Josh grijalva GI at your convenience you might need endoscopy and manometry for your esophagus Additional information: -You are being discharged to your home. -Please return to the Emergency Department if you experience worsening pain, fevers, chills, shortness of breath, or chest pain, or if you experience any worsening, new or concerning symptoms. Referrals: Melquiades Triana MD [Staff Physician] - 1 Week Ema Moreno DO [Staff Physician] - Gil Velazquez MD [Staff Physician] - 1 Week Debbie Barillas MD [Staff Physician] - 1 Week Sachin Valdez MD [Staff Physician] - 1 Week Otilio Angela [Primary Care Provider] - 2 Weeks Kwabena Enrique MD [Staff Physician] - 1 Week Disposition: HOME - Home Medications Comprehensive Discharge Medication List: Ambulatory Orders Acetaminophen [Tylenol .Regular Strength -] 650 mg PO Q6H PRN #60 tablet 12/22/19 Amitriptyline HCl [Elavil -] 150 mg PO HS 12/22/19 Carbamazepine [Carbamazepine ER] 200 mg PO BID 12/22/19 Hydroxychloroquine Sulfate [Plaquenil] 200 mg PO DAILY 12/22/19 Prednisone 5 mg PO BID 12/22/19 Topiramate [Topamax] 50 mg PO BID 12/22/19 Pantoprazole Sodium [Protonix] 20 mg PO DAILY #30 tablet. 12/26/19 Tizanidine HCl 4 mg PO TID 12/26/19 This patient is new to me today: Yes Date on this admission: 12/27/19 Emergency Visit: Yes ED Registration Date: 12/19/19 Care time: The patient presented to the Emergency Department on the above date and was hospitalized for further evaluation of their emergent condition. Critical Care patient: No - Discharge Referral Referred to [facility] Med P.C.: No ATTENDING PHYSICIAN STATEMENT I saw and evaluated the patient. I reviewed the resident's note and discussed the case with the resident. I agree with the resident's findings and plan as documented. SUBJECTIVE: OBJECTIVE: ASSESSMENT AND PLAN:
== END 2019-12-26 18:26 | disposition home or self-care (01) | DRG 547 ==
LOC: JER 14:53 → JERBED 17:48 → J4W 23:40
PROVIDERS: ATTEND Internal Medicine
DX: M32.9 Systemic lupus erythematosus, unspecified (principal); R07.89 Other chest pain; R07.81 Pleurodynia; R06.02 Shortness of breath; I10 Essential (primary) hypertension; E66.01 Morbid (severe) obesity due to excess calories; Z68.39 Body mass index [BMI] 39.0-39.9, adult; E78.1 Pure hyperglyceridemia; G40.909 Epilepsy, unspecified, not intractable, without status epilepticus; G43.909 Migraine, unspecified, not intractable, without status migrainosus; Z86.718 Personal history of other venous thrombosis and embolism; J45.909 Unspecified asthma, uncomplicated; F32.9 Major depressive disorder, single episode, unspecified; M79.7 Fibromyalgia; E05.90 Thyrotoxicosis, unspecified without thyrotoxic crisis or storm
CPT/HCPCS: 36415; 71046-TC-FY; 71250-TC; 71550-TC; 78582-TC; 80048; 80053; 80061; 80307; 81003; 82550; 82962; 83036; 83721; 83735; 84439; 84443; 84479; 84480; 84481; 84484; 84703; 85025; 85027; 85379; 85384; 85610; 85651; 85730; 86140; 93005; 93010; 93306-TC; 93351; 93970-TC; 99285-25; A9539; A9540; C8910; C9803; J0131; J1644; U0003

== ENCOUNTER 2020-07-01 10:52 | Emergency (ER) | payer OTHER ==
[2020-07-01 11:01] VITALS: BP 110/78; PULSE 88; TEMP 98.4; BMI 37.8
[2020-07-01] MEDS ORDERED: TETRACAINE 0.5% OPHTH SOLN 2 ML BOTTLE ONE (11:12)
[2020-07-01] MEDS ORDERED: IBUPROFEN 400 MG TABLET (FP) PO ONE ×2 (11:19→11:23)
== END 2020-07-01 11:49 | disposition home or self-care (01) ==
LOC: JERFT 10:52
DX: S05.01XA Injury of conjunctiva and corneal abrasion without foreign body, right eye, initial encounter (principal)
CPT/HCPCS: 99283-25

== ENCOUNTER 2020-11-15 16:34 | Emergency (ER) | payer OTHER ==
[2020-11-15 17:03] VITALS: BP 128/83; PULSE 86; TEMP 98.2; BMI 39.4
[2020-11-15] MEDS ORDERED: IBUPROFEN 600 MG TABLET (FP) PO ONE ×2 (18:05→18:20)
== END 2020-11-15 18:21 | disposition home or self-care (01) ==
LOC: JER 16:34
DX: M32.9 Systemic lupus erythematosus, unspecified (principal)
CPT/HCPCS: 99283-25

== ENCOUNTER 2021-06-22 05:02 | Inpatient (IN) | payer OTHER ==
[2021-06-22 05:29] VITALS: BMI 39.4
[2021-06-22] MEDS ORDERED: predniSONE 20 MG TABLET (UD) PO ONE (06:01)
[2021-06-22] MEDS ORDERED: predniSONE 20 MG TABLET (UD) ONE (06:42)
[2021-06-22] MEDS ORDERED: morphine CARPU-JECT 4 MG/1 ML DISP.SYRIN IVPUSH ONE ×3 (07:40→10:40)
[2021-06-22] MEDS ORDERED: ACETAMINOPHEN 1000 MG/100 ML BAG IVPB ONE ×2 (07:40→14:25)
[2021-06-22] MEDS ORDERED: SODIUM CHLORIDE 0.9% 500 ML INFUS.BAG IV ONE (07:40)
[2021-06-22] MEDS ORDERED: ONDANSETRON 4 MG/2 ML VIAL IVPUSH ONE (07:45)
[2021-06-22] MEDS ORDERED: ACETAMINOPHEN INJECTION 100 ML IVPB ONE ×2 (08:00→14:26)
[2021-06-22 08:27] LABS: BASO % 0.4 % (0-2.0); EOS % 1.8 % (0-4.5); HEMATOCRIT 38.4 % (32.4-45.2); HEMOGLOBIN 13.4 GM/dL (10.7-15.3); MCHC 34.8 g/dl (32.0-36.0); MEAN CELL VOLUME 91.9 fl (80-96); MEAN PLT VOLUME 7.9 fl (7.5-11.1); MONO % 4.6 % (3.8-10.2); NEUT % 50.2 % (42.8-82.8); PLATELET COUNT 304 10^3/uL (134-434); RBC 4.18 M/mm3 (3.60-5.2); WHITE BLOOD COUNT 7.6 K/mm3 (4.0-10.0)
[2021-06-22] MEDS ORDERED: morphine SULFATE 4 MG/ML VIAL ONE ×3 (08:41→10:44)
[2021-06-22] MEDS ORDERED: ONDANSETRON 4 MG/2 ML VIAL ONE (08:42)
[2021-06-22 08:46] LABS: CALCIUM 9.3 mg/dL (8.5-10.1)
[2021-06-22 08:47] LABS: BLOOD UREA NITROGEN 10.7 mg/dL (7-18); MAGNESIUM 2.2 mg/dL (1.8-2.4)
[2021-06-22 08:50] LABS: CREATININE 0.7 mg/dL (0.55-1.3)
[2021-06-22 08:51] LABS: BILIRUBIN,TOTAL 0.2 mg/dL (0.2-1)
[2021-06-22 08:52] LABS: TOT PROT 7.5 g/dl (6.4-8.2)
[2021-06-22 09:23] LABS: PH,URINE 6.5 (5.0-8.0); URINE APPEARANCE CLEAR; URINE BILIRUBIN NEGATIVE (NEGATIVE); URINE COLOR YELLOW; URINE GLUCOSE (UA) NEGATIVE (NEGATIVE); URINE KETONE NEGATIVE (NEGATIVE); URINE LEUK ESTERASE NEGATIVE (NEGATIVE); URINE NITRITE NEGATIVE (NEGATIVE); URINE PROTEIN NEGATIVE (NEGATIVE); URINE UROBILINOGEN 0.2 mg/dL (0.2-1.0)
[2021-06-22] MEDS ORDERED: ACETAMINOPHEN 325 MG TABLET (FP) PO PRN (14:48)
[2021-06-22] MEDS ORDERED: HYDROmorphone HCl 2 MG/ML VIAL ONE ×2 (15:21→20:17)
[2021-06-22] MEDS: HYDROmorphone HCl 2 MG/ML VIAL IVPB PRN ×2 (15:33→20:20)
[2021-06-22] MEDS: TOPIRAMATE 25 MG TABLET PO SCH (21:39)
[2021-06-22] MEDS: carBAMazepine XR 200 MG TAB.ER.12H PO SCH (21:40)
[2021-06-22] MEDS: TIZANIDINE HCL 4 MG TABLET PO PRN (21:40)
[2021-06-22] MEDS: AMITRIPTYLINE HCL 75 MG TABLET PO SCH (21:43)
[2021-06-22] MEDS ORDERED: predniSONE 5 MG TABLET (UD) PO SCH (22:00)
[2021-06-23] MEDS: TIZANIDINE HCL 4 MG TABLET PO PRN (05:30)
[2021-06-23] MEDS: HYDROmorphone HCl 2 MG/ML VIAL IVPB PRN ×3 (06:36→15:26)
[2021-06-23] MEDS: ENOXAPARIN NA (PORCINE) 40 MG/0.4 ML DISP.SYRIN SQ SCH (09:22)
[2021-06-23] MEDS: TOPIRAMATE 25 MG TABLET PO SCH ×2 (09:23→23:09)
[2021-06-23] MEDS: carBAMazepine XR 200 MG TAB.ER.12H PO SCH ×2 (09:24→21:06)
[2021-06-23 09:56] LABS: HEMOGLOBIN 12.4 GM/dL (10.7-15.3); MCH 31.5 pg (25.7-33.7); MCHC 34.5 g/dl (32.0-36.0); MEAN CELL VOLUME 91.3 fl (80-96); PLATELET COUNT 295 10^3/uL (134-434); RBC 3.95 M/mm3 (3.60-5.2); WHITE BLOOD COUNT 5.5 K/mm3 (4.0-10.0)
[2021-06-23] MEDS ORDERED: PANTOPRAZOLE 40 MG TABLET PO SCH (10:00)
[2021-06-23] MEDS ORDERED: predniSONE 20 MG TABLET (UD) PO SCH (10:00)
[2021-06-23 10:14] LABS: CALCIUM 8.7 mg/dL (8.5-10.1)
[2021-06-23 10:15] LABS: BLOOD UREA NITROGEN 9.1 mg/dL (7-18)
[2021-06-23 10:17] LABS: CREATININE 0.8 mg/dL (0.55-1.3)
[2021-06-23] MEDS: HYDROXYCHLOROQUINE SO4 200 MG TABLET (FP) PO SCH (10:32)
[2021-06-23] MEDS ORDERED: predniSONE 20 MG TABLET (UD) PO ONE (13:00)
[2021-06-23] MEDS ORDERED: ONDANSETRON 4 MG/2 ML VIAL IVPUSH PRN (14:48)
[2021-06-23] MEDS ORDERED: ACETAMINOPHEN 325 MG TABLET (FP) PO PRN (15:52)
[2021-06-23] MEDS ORDERED: TEMAZEPAM 15 MG CAPSULE PO PRN (15:56)
[2021-06-23] MEDS ORDERED: ALBUTEROL SO4 HFA INHALER IH PRN (15:57)
[2021-06-23] MEDS: AMITRIPTYLINE HCL 75 MG TABLET PO SCH (21:06)
[2021-06-23] MEDS: OLANZapine 10 MG TABLET PO SCH (21:06)
[2021-06-24] MEDS: oxyCODONE HCL 5 MG TABLET PO PRN ×2 (08:40→14:53)
[2021-06-24] MEDS: predniSONE 20 MG TABLET (UD) PO SCH (10:17)
[2021-06-24] MEDS: amLODIPine BESYLATE 5 MG TABLET (FP) PO SCH (10:18)
[2021-06-24] MEDS: FOLIC ACID 1 MG TABLET (FP) PO SCH (10:18)
[2021-06-24] MEDS: PANTOPRAZOLE SODIUM 40 MG VIAL IVPUSH SCH (10:19)
[2021-06-24] MEDS: ENOXAPARIN NA (PORCINE) 40 MG/0.4 ML DISP.SYRIN SQ SCH (10:20)
[2021-06-24 10:26] LABS: BASO % 0.5 % (0-2.0); HEMATOCRIT 40.1 % (32.4-45.2); HEMOGLOBIN 13.9 GM/dL (10.7-15.3); LYMPH % 35.2 % (8-40); MCH 31.5 pg (25.7-33.7); MCHC 34.6 g/dl (32.0-36.0); MEAN PLT VOLUME 7.8 fl (7.5-11.1); MONO % 6.5 % (3.8-10.2); NEUT % 56.8 % (42.8-82.8); PLATELET COUNT 349 10^3/uL (134-434); RBC 4.41 M/mm3 (3.60-5.2); WHITE BLOOD COUNT 8.2 K/mm3 (4.0-10.0)
[2021-06-24 10:58] LABS: CALCIUM 9.5 mg/dL (8.5-10.1)
[2021-06-24 10:59] LABS: BLOOD UREA NITROGEN 9.4 mg/dL (7-18)
[2021-06-24 11:02] LABS: CREATININE 0.8 mg/dL (0.55-1.3)
[2021-06-24] MEDS: POLYETHYLENE GLYCOL (HEALTHYLAX) 3350 17 GM PACKET PO SCH (11:08)
[2021-06-24] MEDS: TOPIRAMATE 25 MG TABLET PO SCH ×2 (11:09→21:11)
[2021-06-24] MEDS: carBAMazepine XR 200 MG TAB.ER.12H PO SCH ×2 (11:09→21:11)
[2021-06-24] MEDS: HYDROXYCHLOROQUINE SO4 200 MG TABLET (FP) PO SCH ×2 (11:10→15:20)
[2021-06-24] MEDS: OLANZapine 10 MG TABLET PO SCH (21:12)
[2021-06-24] MEDS: AMITRIPTYLINE HCL 75 MG TABLET PO SCH (21:13)
[2021-06-25 08:00] LABS: BASO % 0.3 % (0-2.0); EOS % 1.1 % (0-4.5); HEMOGLOBIN 12.8 GM/dL (10.7-15.3); LYMPH % 41.9 % (8-40); MCH 31.5 pg (25.7-33.7); MCHC 34.7 g/dl (32.0-36.0); MEAN CELL VOLUME 90.9 fl (80-96); MEAN PLT VOLUME 7.9 fl (7.5-11.1); MONO % 6.8 % (3.8-10.2); NEUT % 49.9 % (42.8-82.8); PLATELET COUNT 326 10^3/uL (134-434); RBC 4.07 M/mm3 (3.60-5.2); RDW 13.3 % (11.6-15.6); WHITE BLOOD COUNT 7.4 K/mm3 (4.0-10.0)
[2021-06-25 08:21] LABS: CALCIUM 9.2 mg/dL (8.5-10.1)
[2021-06-25 08:22] LABS: BLOOD UREA NITROGEN 12.7 mg/dL (7-18)
[2021-06-25 08:25] LABS: CREATININE 0.6 mg/dL (0.55-1.3)
[2021-06-25] MEDS: oxyCODONE HCL 5 MG TABLET PO PRN ×3 (08:49→22:13)
[2021-06-25] MEDS: predniSONE 20 MG TABLET (UD) PO SCH (09:10)
[2021-06-25] MEDS: FOLIC ACID 1 MG TABLET (FP) PO SCH (09:15)
[2021-06-25] MEDS: POLYETHYLENE GLYCOL (HEALTHYLAX) 3350 17 GM PACKET PO SCH (09:15)
[2021-06-25] MEDS: amLODIPine BESYLATE 5 MG TABLET (FP) PO SCH (09:16)
[2021-06-25] MEDS: HYDROXYCHLOROQUINE SO4 200 MG TABLET (FP) PO SCH (09:16)
[2021-06-25] MEDS: TOPIRAMATE 25 MG TABLET PO SCH ×2 (09:17→22:12)
[2021-06-25] MEDS: carBAMazepine XR 200 MG TAB.ER.12H PO SCH ×2 (09:17→22:12)
[2021-06-25] MEDS: ENOXAPARIN NA (PORCINE) 40 MG/0.4 ML DISP.SYRIN SQ SCH (09:40)
[2021-06-25] MEDS: PANTOPRAZOLE SODIUM 40 MG VIAL IVPUSH SCH (09:44)
[2021-06-25] MEDS: AMITRIPTYLINE HCL 75 MG TABLET PO SCH (22:12)
[2021-06-25] MEDS: OLANZapine 10 MG TABLET PO SCH (22:12)
[2021-06-26 08:30] LABS: BASO % 0.5 % (0-2.0); EOS % 1.3 % (0-4.5); HEMATOCRIT 36.3 % (32.4-45.2); HEMOGLOBIN 12.8 GM/dL (10.7-15.3); LYMPH % 45.9 % (8-40); MCHC 35.3 g/dl (32.0-36.0); MEAN CELL VOLUME 90.7 fl (80-96); MEAN PLT VOLUME 7.2 fl (7.5-11.1); MONO % 6.8 % (3.8-10.2); NEUT % 45.5 % (42.8-82.8); PLATELET COUNT 295 10^3/uL (134-434); RDW 13.3 % (11.6-15.6); WHITE BLOOD COUNT 7.8 K/mm3 (4.0-10.0)
[2021-06-26 09:00] LABS: CALCIUM 8.7 mg/dL (8.5-10.1)
[2021-06-26 09:01] LABS: BLOOD UREA NITROGEN 12.8 mg/dL (7-18)
[2021-06-26 09:04] LABS: CREATININE 0.7 mg/dL (0.55-1.3)
[2021-06-26] MEDS: PANTOPRAZOLE SODIUM 40 MG VIAL IVPUSH SCH (09:41)
[2021-06-26] MEDS: oxyCODONE HCL 5 MG TABLET PO PRN (09:41)
[2021-06-26] MEDS: FOLIC ACID 1 MG TABLET (FP) PO SCH (09:42)
[2021-06-26] MEDS: amLODIPine BESYLATE 5 MG TABLET (FP) PO SCH (09:42)
[2021-06-26] MEDS: TOPIRAMATE 25 MG TABLET PO SCH (09:42)
[2021-06-26] MEDS: predniSONE 20 MG TABLET (UD) PO SCH (09:43)
[2021-06-26] MEDS: POLYETHYLENE GLYCOL (HEALTHYLAX) 3350 17 GM PACKET PO SCH (09:43)
[2021-06-26] MEDS: ENOXAPARIN NA (PORCINE) 40 MG/0.4 ML DISP.SYRIN SQ SCH (09:43)
[2021-06-26] MEDS: carBAMazepine XR 200 MG TAB.ER.12H PO SCH (09:44)
[2021-06-26] MEDS: HYDROXYCHLOROQUINE SO4 200 MG TABLET (FP) PO SCH (09:45)
[2021-06-26 14:26] VITALS: BP 141/85; PULSE 118; TEMP 98.1
== END 2021-06-26 17:32 | disposition home or self-care (01) | DRG 346 ==
LOC: JER 05:02 → JERBED 10:41 → J8W 20:46
PROVIDERS: ADMIT Internal Medicine; ATTEND Internal Medicine
DX: M32.9 Systemic lupus erythematosus, unspecified (principal); Z86.718 Personal history of other venous thrombosis and embolism; E66.9 Obesity, unspecified; Z68.39 Body mass index [BMI] 39.0-39.9, adult; G40.909 Epilepsy, unspecified, not intractable, without status epilepticus; I10 Essential (primary) hypertension; M79.7 Fibromyalgia
CPT/HCPCS: 36415; 70450-TC; 71046-TC-FY; 80048; 80053; 81003; 82550; 83036; 83735; 84484; 84703; 85025; 85027; 87086; 87804; 93005; 93010; 99285-25; C9803-CS; U0003; U0005